=== PATIENT | female | born 1990 | race African-American/Black ===

== ENCOUNTER 2025-05-26 01:14 | Inpatient (IN) ==
--- NOTE | 2025-05-26 01:29 | Emergency Department Note ---
Impression & Plan Luis handoff ED Provider Note HPI: History obtained from case management and RN via police report. The patient is a 35-year-old female with reported bipolar disorder, presents the emergency department with apparent luis. Reportedly, police were called for a wellness check by one of the patient's friends. Patient was exhibiting bizarre and manic behavior upon arrival and therefore was brought to the ER for medical evaluation. On my assessment here in the ED the patient is manic appearing, she exhibits a disorganized thought process, she continues to talk without stopping. Patient is talking about "the Nazis" as well as "the devil" and at times is talking about various celebrities. She is not willing to answer any of my questions. Patient physically does not appear to be in any acute distress. ROS: - Per HPI Differential Diagnosis: Acute psychosis, bipolar disorder with luis, polysubstance abuse/drug-induced psychosis, amongst other potential pathologies. *Outpatient medications and allergy history reviewed. PE: General: Alert HEENT: Normocephalic, trachea midline Eyes: Extraocular eye movement is intact, no scleral erythema Pulmonary: Clear to auscultation bilaterally, no wheezing Cardio: Regular rate and rhythm GI: Abdomen is soft to palpation : No suprapubic tenderness MSK: No evidence of trauma or malformation of the extremities, no edema Skin: No evidence of rash Neuro: Alert, no focal deficits Psychiatric: Patient is tangential and disorganized with her thought process, manic appearing Interventions provided in ED: -IM Haldol, IM Ativan Medical Decision Making: Patient required sedation shortly after arrival given her agitation, disorganized thought process, and inability to comply with any instructions or plan of care. Chemical sedation did work well, lab work was obtained and did not show any evidence of any critical findings. testing is negative. Alcohol level is negative. COVID screening is negative. 302 was filed and upheld by myself. Patient is disorganized does not appear stable to take care of herself at this time due to acute psychiatric illness. Plan at this point is for the patient to be evaluated by [facility] S. for potential inpatient admission. Patient was signed out to my colleague, Dr. Murcia, pending ongoing evaluation and bed search for inpatient psychiatric care. Consultants/Discussions held with other healthcare providers: - Case management * CRITICAL CARE TIME: ( 38 ) minutes - Stabilization of patient with acute luis and agitation requiring chemical sedation to comply with plan of care, time spent at the bedside, interpretation of lab work and diagnostic studies, discussion with other healthcare providers and arrangement of 302 Diagnosis: 1. Acute luis with disorganized thought process 2. Agitation, acute Disposition: Handoff Jamar Laird DO Emergency Medicine Past Med/Surg History Problem List (Updated 05/26/25 @ 06:00 by Jamar Laird DO) Luis (Acute) Obesity Diabetes type 2 Social History Smoking Status: Unknown if ever smoked Preferred Language: Macedonian Feels Safe at Home: Yes Gender Identity: Female Allergies Allergies Allergy/AdvReac Type Severity Reaction Status Date / Time cefaclor [From [facility]] Allergy Verified 04/01/25 13:15 Home Meds Home Medications Medication Instructions Recorded Confirmed atomoxetine 100 mg capsule 100 mg PO DAILY 04/01/25 04/01/25 citalopram 40 mg tablet 40 mg PO DAILY 04/01/25 04/01/25 lumateperone 42 mg capsule 42 mg PO DAILY 04/01/25 04/01/25 (Caplyta) metformin 1,000 mg 24 hr 1,000 mg PO DAILY 04/01/25 04/01/25 tablet,extended release (gastric reten.) pantoprazole 40 mg tablet,delayed 40 mg PO DAILY 04/01/25 04/01/25 release trazodone 100 mg tablet 100 mg PO HS PRN 04/01/25 04/01/25 Previous Rx's Medication Instructions Recorded alcohol swabs 1 pad topical PRN #100 ea 04/01/25 blood sugar diagnostic (Contour #100 ea 04/01/25 Next Test Strips) blood-glucose meter (Contour Next #1 ea 04/01/25 Glucose Meter kit) lancets #100 ea 04/01/25 Results & Data (ED) Vital Signs Vital Signs - 24 hr 05/26/25 01:32 05/26/25 03:10 05/26/25 03:15 Temperature 36.8 C Temperature Source Oral Pulse Rate 127 H 112 H Pulse Rate [Finger] 100 H Pulse Rate from SpO2 Sensor Respiratory Rate 20 18 Respiratory Effort / Characteristics Non-Labored Spontaneous Non-Labored Spontaneous Respiratory Depth Normal Normal Respiratory Pattern Regular Regular Blood Pressure 154/89 H Blood Pressure [Left Arm] 156/94 H Blood Pressure Mean 110 Blood Pressure Mean [Left Arm] 114 Blood Pressure Position [Left Arm] Lying Pulse Oximetry 99 99 Oxygen Delivery Method Room Air Room Air Sepsis Recent Fever Within 48 Hours No Sepsis New/Unexplained Change in Mental Status N/A Sepsis Action Taken by Nursing No Action Required 05/26/25 03:30 05/26/25 04:00 05/26/25 04:30 Temperature Temperature Source Pulse Rate 112 H 114 H 114 H Pulse Rate [Finger] Pulse Rate from SpO2 Sensor 112 H 114 H 114 H Respiratory Rate 22 26 H 27 H Respiratory Effort / Characteristics Respiratory Depth Respiratory Pattern Blood Pressure Blood Pressure [Left Arm] Blood Pressure Mean Blood Pressure Mean [Left Arm] Blood Pressure Position [Left Arm] Pulse Oximetry 97 97 97 Oxygen Delivery Method Sepsis Recent Fever Within 48 Hours Sepsis New/Unexplained Change in Mental Status Sepsis Action Taken by Nursing 05/26/25 04:51 05/26/25 05:00 05/26/25 05:00 Temperature Temperature Source Pulse Rate 126 H 110 H Pulse Rate [Finger] 104 H Pulse Rate from SpO2 Sensor Respiratory Rate 31 H 29 H 29 H Respiratory Effort / Characteristics Respiratory Depth Respiratory Pattern Blood Pressure 142/92 H Blood Pressure [Left Arm] 142/92 H Blood Pressure Mean 108 Blood Pressure Mean [Left Arm] 108 Blood Pressure Position [Left Arm] Pulse Oximetry 97 Oxygen Delivery Method Room Air Sepsis Recent Fever Within 48 Hours Sepsis New/Unexplained Change in Mental Status Sepsis Action Taken by Nursing 05/26/25 05:30 05/26/25 06:00 05/26/25 06:27 Temperature Temperature Source Pulse Rate 108 H 100 H 118 H Pulse Rate [Finger] Pulse Rate from SpO2 Sensor Respiratory Rate 25 H 22 21 Respiratory Effort / Characteristics Respiratory Depth Respiratory Pattern Blood Pressure 119/91 Blood Pressure [Left Arm] Blood Pressure Mean 100 Blood Pressure Mean [Left Arm] Blood Pressure Position [Left Arm] Pulse Oximetry 97 Oxygen Delivery Method Room Air Sepsis Recent Fever Within 48 Hours Sepsis New/Unexplained Change in Mental Status Sepsis Action Taken by Nursing 05/26/25 06:27 Temperature Temperature Source Pulse Rate Pulse Rate [Finger] Pulse Rate from SpO2 Sensor Respiratory Rate Respiratory Effort / Characteristics Respiratory Depth Respiratory Pattern Blood Pressure 119/91 Blood Pressure [Left Arm] Blood Pressure Mean 104 Blood Pressure Mean [Left Arm] Blood Pressure Position [Left Arm] Pulse Oximetry Oxygen Delivery Method Sepsis Recent Fever Within 48 Hours Sepsis New/Unexplained Change in Mental Status Sepsis Action Taken by Nursing Laboratory Data 05/26/25 01:16 05/26/25 01:16 Lab Results 05/26/25 05/26/25 05/26/25 Range/Units 01:16 01:52 01:57 WBC 9.74 (4.8-10.8) K/ul RBC 4.30 (4.20-5.40) M/uL Hgb 12.5 (12.0-16.0) g/dL Hct 34.6 L (37.0-47.0) % MCV 80.5 (80.0-100.0) fL MCH 29.1 (25.0-34.0) pg MCHC 36.1 H (32.0-36.0) g/dL RDW Std Deviation 34.0 L (36.4-46.3) fL RDW Coeff of Darian 11.7 (11.5-14.5) % Plt Count 348 (130-400) K/uL MPV 10.1 (9.4-12.4) fL Immature Gran % (Auto) 0.3 % Neut % (Auto) 57.3 % Lymph % (Auto) 33.4 % Spencer % (Auto) 8.2 % Eos % (Auto) 0.2 % Baso % (Auto) 0.6 % Neut # (Auto) 5.58 (1.40-6.50) K/uL Lymph # (Auto) 3.25 (1.20-3.40) K/uL Spencer # (Auto) 0.80 H (0.11-0.59) K/uL Eos # (Auto) 0.02 (0.00-0.50) K/uL Baso # (Auto) 0.06 (0.00-0.20) K/uL Immature Gran # (Auto) 0.03 (0.01-0.20) K/uL Sodium 140 (136-145) mmol/L Potassium 3.5 (3.5-5.1) mmol/L Chloride 106 (98-107) mmol/L Carbon Dioxide 18 L (21-32) mmol/L Anion Gap 16 H (3-11) BUN 13 (6-23) mg/dl Creatinine 1.06 (0.6-1.2) mg/dl Est Cr Clr Drug Dosing 73.3 ml/min eGFR 69.39 BUN/Creatinine Ratio 12.3 (10-20) Glucose 119 H (70-99(Fasting)) mg/dl Calcium 10.0 (8.6-10.3) mg/dl Total Bilirubin 1.2 H (0.2-1.0) mg/dl AST 36 (13-39) U/L ALT 32 (7-52) U/L Alkaline Phosphatase 41 (34-104) U/L Total Protein 7.3 (6.0-8.3) gm/dl Albumin 4.6 (3.4-5.0) gm/dl Globulin 2.7 (2.5-4.0) gm/dl Albumin/Globulin Ratio 1.7 (0.9-2) TSH 6.188 H (0.300-4.500) uIu/ml Free T4 1.38 (0.61-1.60) ng/dl HCG, Qual Negative (Negative) Salicylates < 3.0 L (3.0-30) mg/dl Acetaminophen < 3 L (10-30) ug/ml Ethyl Alcohol mg/dL < 10.0 (<10.0) mg/dl SARS-CoV-2, RNA, NAAT (NEGATIVE) 05/26/25 Range/Units 03:11 WBC (4.8-10.8) K/ul RBC (4.20-5.40) M/uL Hgb (12.0-16.0) g/dL Hct (37.0-47.0) % MCV (80.0-100.0) fL MCH (25.0-34.0) pg MCHC (32.0-36.0) g/dL RDW Std Deviation (36.4-46.3) fL RDW Coeff of Darian (11.5-14.5) % Plt Count (130-400) K/uL MPV (9.4-12.4) fL Immature Gran % (Auto) % Neut % (Auto) % Lymph % (Auto) % Spencer % (Auto) % Eos % (Auto) % Baso % (Auto) % Neut # (Auto) (1.40-6.50) K/uL Lymph # (Auto) (1.20-3.40) K/uL Spencer # (Auto) (0.11-0.59) K/uL Eos # (Auto) (0.00-0.50) K/uL Baso # (Auto) (0.00-0.20) K/uL Immature Gran # (Auto) (0.01-0.20) K/uL Sodium (136-145) mmol/L Potassium (3.5-5.1) mmol/L Chloride (98-107) mmol/L Carbon Dioxide (21-32) mmol/L Anion Gap (3-11) BUN (6-23) mg/dl Creatinine (0.6-1.2) mg/dl Est Cr Clr Drug Dosing ml/min eGFR BUN/Creatinine Ratio (10-20) Glucose (70-99(Fasting)) mg/dl Calcium (8.6-10.3) mg/dl Total Bilirubin (0.2-1.0) mg/dl AST (13-39) U/L ALT (7-52) U/L Alkaline Phosphatase (34-104) U/L Total Protein (6.0-8.3) gm/dl Albumin (3.4-5.0) gm/dl Globulin (2.5-4.0) gm/dl Albumin/Globulin Ratio (0.9-2) TSH (0.300-4.500) uIu/ml Free T4 (0.61-1.60) ng/dl HCG, Qual (Negative) Salicylates (3.0-30) mg/dl Acetaminophen (10-30) ug/ml Ethyl Alcohol mg/dL (<10.0) mg/dl SARS-CoV-2, RNA, NAAT NEGATIVE (NEGATIVE) Administered Medications Discontinued Medications Haloperidol Lactate (Haloperidol Lactate 5 Mg/Ml 1 Ml Vial) Confirm Administered Dose 10 mg .ROUTE .STK-MED ONE Stop: 05/26/25 01:27 Last Admin: 05/26/25 01:41 Dose: Not Given Documented By: VIJAY Haloperidol Lactate (Haloperidol Lactate 5 Mg/Ml 1 Ml Vial) 5 mg IM NOW STA Stop: 05/26/25 01:27 Last Admin: 05/26/25 01:42 Dose: 5 mg Documented By: VIJAY Lorazepam (Lorazepam 1 Mg/1 Ml Syr Ed Inj Use) Confirm Administered Dose 2 mg .ROUTE .STK-MED ONE Stop: 05/26/25 01:27 Last Admin: 05/26/25 01:41 Dose: Not Given Documented By: VIJAY Lorazepam (Lorazepam 1 Mg/1 Ml Syr Ed Inj Use) 2 mg IM ONE STA Stop: 12/17/25 01:27 Last Admin: 05/26/25 01:42 Dose: 2 mg Documented By: [facility] Discharge Plan Visit Data Chief Complaint: Mental Health Evaluation Stated Complaint: MHID ED Provider: Jamar Laird Discharge Problem: Luis Patient Disposition: Still a Patient Condition: Fair Forms Stand Alone Forms: My [facility], Suicide Prevention Resources Prescriptions Prescriptions: No Action Caplyta 42 mg capsule 42 mg PO DAILY trazodone 100 mg tablet 100 mg PO HS PRN atomoxetine 100 mg capsule 100 mg PO DAILY pantoprazole 40 mg tablet,delayed release (DR/EC) 40 mg PO DAILY metformin 1,000 mg tablet,ER vivek.retention 24 hr 1,000 mg PO DAILY citalopram 40 mg tablet 40 mg PO DAILY (DME) blood-glucose meter [Contour Next Glucose Meter] Kit See Rx Instructions miscellaneous .MEDSUPPLY Qty: 1 0RF Rx Instructions: As directed, check blood sugar daily (DME) Contour Next Test Strips Strip See Rx Instructions miscellaneous .MEDSUPPLY Qty: 100 0RF Rx Instructions: As directed, check blood sugar daily (DME) lancets Misc See Rx Instructions miscellaneous .MEDSUPPLY Qty: 100 1RF Rx Instructions: As directed, check blood sugar daily alcohol swabs Pads, Medicated 1 pad topical PRN Qty: 100 1RF Referrals Referrals: Vladimir Valdez PA-C [Primary Care Provider] -
[2025-05-26] MEDS: LORazepam 1 MG/1 ML SYR ED Inj Use ONE (01:41)
[2025-05-26] MEDS: HALOPERIDOL LACTATE 5 MG/ML 1 ML VIAL ONE (01:41)
[2025-05-26] MEDS: LORazepam 1 MG/1 ML SYR ED Inj Use IM STA (01:42)
[2025-05-26] MEDS: HALOPERIDOL LACTATE 5 MG/ML 1 ML VIAL IM STA (01:42)
[2025-05-26 02:29] LABS: Hematocrit (blood only) 34.6 % (37.0-47.0); Hemoglobin 12.5 g/dL (12.0-16.0); Immature Granulocytes # (auto) 0.03 K/uL (0.01-0.20); Immature Granulocytes % (auto) 0.3 %; Mean Corpuscular Hemoglobin 29.1 pg (25.0-34.0); Mean Corpuscular Volume 80.5 fL (80.0-100.0); Platelet Count 348 K/uL (130-400); RDW Standard Deviation 34.0 fL (36.4-46.3); Red Blood Count 4.30 M/uL (4.20-5.40); White Blood Count 9.74 K/ul (4.8-10.8)
[2025-05-26 02:42] LABS: Pregnancy Test, Serum Negative (Negative)
[2025-05-26 02:46] LABS: Alanine Aminotransferase 32.0 U/L (7-52); Albumin Globulin Ratio 1.7 (0.9-2); Albumin Level 4.6 gm/dl (3.4-5.0); Alkaline Phosphatase 41.0 U/L (34-104); Anion Gap 16.0 (3-11); Bilirubin,Total 1.2 mg/dl (0.2-1.0); Blood Urea Nitrogen 13.0 mg/dl (6-23); Calcium 10.0 mg/dl (8.6-10.3); Carbon Dioxide 18.0 mmol/L (21-32); Chloride 106.0 mmol/L (98-107); Creatinine Clr Calc Pharmacy 73.3 ml/min; Globulin 2.7 gm/dl (2.5-4.0); Glucose 119.0 mg/dl (70-99(Fasting)); Potassium 3.5 mmol/L (3.5-5.1); Sodium 140.0 mmol/L (136-145); Total Protein 7.3 gm/dl (6.0-8.3)
[2025-05-26 02:59] LABS: Acetaminophen < 3 ug/ml (10-30); Salicylate < 3.0 mg/dl (3.0-30)
[2025-05-26 03:01] LABS: Thyroid Stimulating Hormone 6.188 uIu/ml (0.300-4.500)
[2025-05-26 03:36] LABS: T4 Free Thyroxine 1.38 ng/dl (0.61-1.60)
--- NOTE | 2025-05-26 07:31 | Emergency Department Note ---
ED Visit Note Received this patient in signout. In short a 35-year-old with manic and disorganized behavior requiring sedation overnight here waiting placement on a 302. Urinalysis obtained to exclude infection and UDS sent. Case management assisted. Referrals were made. She was evaluated by [facility] [address]. and accepted there for further inpatient mental health care. .
[2025-05-26 11:51] LABS: Appearance Urine Clear (Clear); Bacteria Urine Automated 1+ (None Seen); Cast Urine Automated 0-2 /lpf (0-2); Glucose Urine UA Negative (Negative); RBC Urine Automated 0-2 /hpf (0-2); WBC Urine Automated 0-5 /hpf (0-5)
[2025-05-26 12:37] LABS: Amphetamines+Metham, Urine Neg (Neg); MDMA (Ecstacy), Urine Neg (Neg); Marijuana, Urine Neg (Neg)
[2025-05-26] MEDS ORDERED: SODIUM CHLORIDE 0.65% NA SOLN 45 ML (OCEAN) PRN (13:55)
[2025-05-26] MEDS ORDERED: ACETAMINOPHEN 325 MG TAB PO PRN (13:55)
[2025-05-26] MEDS ORDERED: MAGNESIUM HYDROXIDE SUSP 30 ML UDC PO PRN (13:55)
[2025-05-26] MEDS ORDERED: LORazepam 0.5 MG TAB PO PRN (13:56)
--- NOTE | 2025-05-27 09:07 | History & Physical ---
Date of Service May 27, 2025 Impression / Recommendations Impression Rosa Spivey is a 35-year-old female with AN established history of bipolar 1 disorder, and presents with acute luis, involving disorganized and paranoid behavior prior to admission. She was initially brought in on a 302 petition by crisis, after police did a wellness check and she answered the door naked, was hyperverbal, and refused to put on clothing. 302 was upheld in the emergency room, she had as needed medication given then. She has been more cooperative since arrival to the unit, and a 201 was offered. Patient was agreeable to signing in voluntarily. She is willing to accept medication here. She feels Caplyta, which was started about 4 to 5 months ago, has been helpful. However is not on formulary, she is not willing to ask anyone to bring it in from home. She reports Latuda was also previously helpful and is open to a retrial of that. Start 20 mg today with dinner, and increase to 40 starting tomorrow. She says she is also been on Depakote and would be willing to go back on that if necessary. She is of childbearing age, and test was negative. Given the possible complications of Depakote though, we will start with just Latuda. I did decide to hold her home dose of Celexa and Strattera, given current manic presentation. Medical cause of luis is less likely, since she does have an established bipolar disorder diagnosis and symptoms are similar to past manic presentations. She has been tachycardic but blood pressure has been normal. CBC significant only for low hematocrit (but normal hemoglobin). TSH mildly elevated at 6.188; bilirubin mildly elevated at 1.2. UA was abnormal, but likely contaminated (3-5 epithelial cells). UDS was negative. since we are starting second-generation as a chronic, I did order hemoglobin A1c and lipid panel for the morning. I will also repeat TSH to see if it is normalizing. Overall, I spent a total of 75 minutes on this patient's care, including review of chart/records, direct evaluation of the patient, ordering medication, coordination with nursing, interdisciplinary team meeting, and documentation. (1) Bipolar 1 disorder with moderate luis: Plan The patient was admitted to the [facility] ([facility] mental health unit) on q15 min checks (behavioral with suicide precautions) for safety. The patient will participate in group, recreational, and milieu therapies and will be offered additional individual and family sessions as clinically appropriate. Since admission to the unit yesterday, she has been accepting medication, slept well, is eating and cooperative with staff. She was originally on a 302, and was offered a 201 today. She did sign in voluntarily. New medications initiated: Latuda 20 mg today, then 40 mg starting tomorrow Continue the following home medications: trazodone 100 mg nightly metformin 1000 mg daily spironolactone pantoprazole 40 mg daily Held with the following Home medications: Celexa 40 mg ( due to luis) Strattera 100 mg ( due to luis) Caplyta 42 mg ( due to not being on formulary, patient unable to bring home med to hospital) The following PRN medications will be started as well: Vistaril as needed anxiety or sleep Tylenol as needed headache or minor fever Maalox, Pepto, milk of mag as needed GI upset Zyprexa 5 mg p.o. p.o. every 6H as needed agitation Ativan 0.5 mg p.o. every 6H as needed agitation Inventory Assets Strengths: intelligence and education, establish outpatient providers, reported medication adherence Needs: medication adjustment, academic support, social support Suicide Risk Level Suicide Risk Level: Moderate (q15 min suicide checks) Suicide Risk Level Comments: suicide Risk Level: Moderate (q15 min suicide checks) Suicide Risk Level Comments: low-moderate due to luis which increases impulsivity but feels safe in the hospital, denying SI currently, able to contract for safety and agrees to let staff know should if plan or intent develops, or if patient feels unable to remain safe. 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 Chief Complaint " I am fine". History of Present Illness In the ED, she was noted to have disorganized thoughts, to be hyperverbal with pressured speech and talking about "the Nazis" as well as "the devil" and several various celebrities. Word salad at times in the ED, per window caser note. She had IM medications and it was reported that this was effective. 302 was filed by crisis, and upheld in the emergency room. Patient's mother was contacted, and reported concern the patient has been not taking her meds and decompensating for the past 4 5 days. Patient reportedly has 1 previous episode of similar behavior in 2010, when she was studying for her masters degree. Her mother has a [employer] mary, and noted that patient has not left her apartment in several days. She and AJ typically talk several times a day, but recently patient stopped communicating in the past, talking her mother during a manic episode seem to be a trigger and could escalate behavior. Police reported that patient's mother was the one who called them for the wellness check. She answered the door completely undressed and stepped in the hallway, would not dress despite encouragement from officers. She is was hyperverbal does not allow others to speak, saying things about "the illuminati", calling the officers "white supreme assist", and stating that [employer] Christina is building a tower. In the ED, she was noted to have disorganized thoughts, to be hyperverbal with pressured speech and talking about "the Nazis" as well as "the devil" and several various celebrities. Word salad at times in the ED, per window caser note. She had IM Haldol and it was reported that this was effective. 302 was filed by crisis, and upheld in the emergency room. Upon arrival to our unit, she had mild irritability but overall was cooperative with transitioning to the unit. She slept much of the evening shift. She then slept 4-1/2 hours overnight. She did not attend groups yesterday. This morning, she has been pleasant. She was noted to be dancing in her room while listening to music. She tolerated the social history interview with social work. She continues to report she has been taking her medications regularly, but does acknowledge she has had increased academic and social stress recently. Of note, patient does not have her glasses here, and does have significant trouble seeing without them. I met with the patient privately in her room. She said she wanted to lie down on her bed, if that reminded her of lying on the couch when talking to a psychiatrist. She reports 2 weeks ago she had "a cycle", but cannot specifically describe symptoms that occurred. She did report increased stress and said several times "I just needed a break." She says she was a little agitated, and "gaslighting myself", describes some paranoia about her classmates being disrespectful to her. She said "I wanted space and they were not giving it to me." She said she continued going to class and felt symptoms resolved. She denies pulling all minors per finals week. She does state that she tends to wake up at 2 or 4 in the morning and then stay awake. When I reflected that she was hyperverbal with rapid and pressured speech, she said "this is not [place] manic talk[place] She continues to have a paranoid edge, she said she wants no one going into her house to get her glasses or her medication to bring here. denies significant anxiety. Denies depression, SI or PDW. Denies auditory or visual hallucinations. Past Psychiatric History Previous Psych History: Reports she was previously diagnosed with major depression and dysthymia, then got on medications, (Zoloft, Wellbutrin), which triggered a manic episode. She was then hospitalized and diagnosed with bipolar 1. She says she then went off meds, and was rehospitalized. Since then, she has been med adherent and stable according to the patient. She says she had a bout of insomnia possibly hypomania in 2022, and then possibly hypomania 2 weeks ago. her mother reported that in the past, patient has had episodes triggered by academic stress. Current Psychiatric Diagnosis: Bipolar 1, MDD, possibly ADD Outpatient Services: [facility] Previous Psych Admissions: hx of hospitalization in [place] x 2014 and 2015 Do You Have Access To A Gun?: No History of Previous Suicide Attempt: No Past Medication Trials: Zoloft, Wellbutrin, Latuda (helpful in the past), Depakote (says she was on for 15+ years), Caplyta (new starting in January 2025) Past Head Trauma/Neuro History none reported Allergies Allergy/AdvReac Type Severity Reaction Status Date / Time cefaclor [From [facility]] Allergy Verified 04/01/25 13:15 Home Medications Medication Instructions Recorded Confirmed Type atomoxetine 100 mg capsule 100 mg PO DAILY 04/01/25 05/26/25 History blood sugar diagnostic (Contour #100 ea 04/01/25 05/26/25 Rx Next Test Strips) blood-glucose meter (Contour Next #1 ea 04/01/25 05/26/25 Rx Glucose Meter kit) citalopram 40 mg tablet 40 mg PO DAILY 04/01/25 05/26/25 History lancets #100 ea 04/01/25 05/26/25 Rx lumateperone 42 mg capsule 42 mg PO DAILY 04/01/25 05/26/25 History (Caplyta) metformin 1,000 mg 24 hr 1,000 mg PO DAILY 04/01/25 05/26/25 History tablet,extended release (gastric reten.) pantoprazole 40 mg tablet,delayed 40 mg PO DAILY 04/01/25 05/26/25 History release trazodone 100 mg tablet 100 mg PO HS 04/01/25 05/26/25 History Family History Family History of: Other Mood Disorders Family Mental Health History Comment: unknown. pt unable to be assessed Alcohol History Hx of Alcohol Use Over the Past 12 Months: No Smoking Use Have You Smoked or Used Tobacco Products in the Last 30 Days: No tobacco type: smokeless tobacco Smoking Status: Light tobacco smoker Smoking packs per day: 0.1 Substance History Hx of Prescription Med Misuse Over the Past 12 Months: No Hx of Over the Counter Med Misuse Over the Past 12 Months: No Hx of Inhalent Misuse Over the Past 12 Months: No Hx of Organic Substance Use Over the Past 12 Months: No Hx of Illegal Substances/Street Drug Use Over Past 12 Months: No Problems as a Result of Past Substance Use: None Identified Problems as a Result of Past Substance Use Comments: unknown. 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 patient says she started and not completed to past PhD programs. Does have a masters from [employer]. Employment Status: Student Marital Status: Single Number Of Children: 0 Beliefs That Will Affect Care: None Hx Legal Problems: No Patient History Medical History PCOS (polycystic ovarian syndrome) Diabetes type 2 Social History Smoking Status: Light tobacco smoker Preferred Language: Finnish Communication Ability: Effective Loop Tacker Required: No Beliefs That Will Affect Care: None Feels Safe at Home: Yes Gender Identity: Female Assistive Devices: None Review of Systems Review of Systems: All systems reviewed & are unremarkable except as noted in HPI & below Physical Exam Psychiatric: Orientation: alert, oriented x 3 and cooperative Apperance: appropriately dressed mildly disheveled Eye Contact: + fair eye contact Motor Behavior: steady gait and station and + psychomotor agitation frequently changing positions Speech: + pressured speech hyperverbal, rapid. Not loud. Affect: + blunted affect Mood: + anxious mood and + irritable mood Thought Process: goal directed thought process, + circumstantial thought process and + flight of ideas Thought Content: + persecution Suicidal Thoughts: denies suicidal thoughts, denies suicidal plan and denies suicidal intent Homicidal Thoughts: denies homicidal thoughts, denies homicidal plan and denies homicidal intent Hallucinations: no auditory hallucinations and no visual hallucinations Cognition: recent memory grossly intact, remote memory grossly intact and language grossly intact; + attention not intact Distractible Estimated Intelligence: consistent with education level Insight: + limited insight Judgment: + limited judgement Vital Signs (Past 24 Hours): Last Vital Signs Temp 36.5 C 05/27/25 06:20 Pulse 101 H 05/27/25 06:21 Resp 16 05/27/25 06:20 BP 117/88 05/27/25 06:21 Pulse Ox 100 05/26/25 16:02 O2 Del Method Room Air 05/26/25 16:36 Physical Examination: A physical exam was performed in the ED by Dr. Laird for the purposes of medical clearance. I accept that physical as correct and adequate for the purposes of the inpatient physical exam. Results & Data (U) Laboratory Results Laboratory Results - last 24 hr 05/26/25 11:30 Urine Color Yellow Urine Appearance Clear Urine pH 5.5 Ur Specific [place] 1.016 Urine Protein Negative Urine Glucose (UA) Negative Urine Ketones 2+ H Urine Blood 1+ H Urine Nitrite Negative Urine Bilirubin Negative Urine Urobilinogen Negative Ur Leukocyte Esterase Trace H Urine WBC (Auto) 0-5 Urine RBC (Auto) 0-2 U Hyaline Cast (Auto) 0-2 U Epithel Cells (Auto) 3-5 H Urine Bacteria (Auto) 1+ H Urine Comment Urine Opiates Screen Neg Ur Methadone, Qual Neg Urine Fentanyl Screen Neg Urine Barbiturates Neg Ur Phencyclidine (PCP) Neg U Amphetamin/Meth Scrn Neg MDMA (Ecstasy) Screen Neg U Benzodiazepines Scrn Neg Ur Cocaine Metabolite Neg U Marijuana (THC) Screen Neg Current Inpatient Medications Current Inpatient Medications: Current Inpatient Medications Acetaminophen (Acetaminophen 325 Mg Tab) 650 mg PO Q4H PRN PRN Reason: Headache or Minor Fever Stop: 06/25/25 13:54 Al Hydrox/Mg Hydrox/Simethicone (Aluminum/Magnesium Susp 30 Ml Udc) 30 ml PO Q4H PRN PRN Reason: GI Upset Stop: 06/25/25 13:54 Bismuth Subsalicylate (Bismuth Subsalicylate 262 Mg Chew) 2 tab PO Q30M PRN PRN Reason: Loose Stool/Diarrhea Stop: 06/25/25 13:54 Hydroxyzine HCl (Hydroxyzine Hcl 25 Mg Tab) 50 mg PO HSZ PRN PRN Reason: Insomnia Stop: 06/25/25 13:54 Hydroxyzine HCl (Hydroxyzine Hcl 25 Mg Tab) 25 mg PO Q4H PRN PRN Reason: Anxiety Stop: 06/25/25 13:54 Lorazepam (Lorazepam 0.5 Mg Tab) 0.5 mg PO Q6 PRN PRN Reason: Anxiety Stop: 06/25/25 13:55 Magnesium Hydroxide (Magnesium Hydroxide Susp 30 Ml Udc) 30 ml PO DAILY PRN PRN Reason: Constipation Stop: 06/25/25 13:54 Olanzapine (Olanzapine 5 Mg Tablet) 5 mg PO Q6 PRN PRN Reason: Agitation Stop: 06/25/25 13:54 Sodium Chloride (Sodium Chloride 0.65% Na Soln 45 Ml ([place])) 1 - 2 sprays NA PRN PRN PRN Reason: Nasal Dryness/Congestion Stop: 06/25/25 13:54
[2025-05-27] MEDS: BISMUTH SUBSALICYLATE 262 MG CHEW PO PRN (14:38)
[2025-05-27] MEDS: LURASIDONE HCL 20 MG TAB PO SCH (17:32)
[2025-05-27] MEDS: SPIRONOLACTONE 100 MG TAB PO SCH (20:47)
[2025-05-27] MEDS: ALUMINUM/MAGNESIUM SUSP 30 ML UDC PO PRN (20:47)
[2025-05-28 07:30] LABS: Cholesterol 178.0 mg/dl (0-200); HDL Cholesterol 55.0 mg/dl; Triglycerides 109.0 mg/dl (0-150)
[2025-05-28 07:46] LABS: Thyroid Stimulating Hormone 1.394 uIu/ml (0.300-4.500)
--- NOTE | 2025-05-28 09:02 | Psychiatric Progress Note ---
Date of Service May 28, 2025 Impression / Recommendations Impression Rosa Warren is a 35-year-old female with AN established history of bipolar 1 disorder, and presents with acute luis, involving disorganized and paranoid behavior prior to admission. She was initially brought in on a 302 petition by crisis, after police did a wellness check and she answered the door naked, was hyperverbal, and refused to put on clothing. 302 was upheld in the emergency room, she had as needed medication given then. She has been more cooperative since arrival to the unit, and a 201 was offered. Patient was agreeable to signing in voluntarily. She is willing to accept medication here. She feels Caplyta, which was started about 4 to 5 months ago, has been helpful. However is not on formulary, she is not willing to ask anyone to bring it in from home. She reports Latuda was also previously helpful and is open to a retrial of that. Start 20 mg today with dinner, and increase to 40 starting tomorrow. She says she is also been on Depakote and would be willing to go back on that if necessary. She is of childbearing age, and test was negative. Given the possible complications of Depakote though, we will start with just Latuda. I did decide to hold her home dose of Celexa and Strattera, given current manic presentation. A: More organized. No irritability or agitation. No delusional content. Still little elevated, with rapid speech and thoughts, but showing better insight. Increase Latuda to 40 mg today. of note, patient reports they were in process of determining whether she has ADHD and her outpatient treatment recently. Overall, I spent a total of 35 minutes on this patient's care, including review of chart/records, direct evaluation of the patient, ordering medication, coordination with nursing, interdisciplinary team meeting, and documentation. (1) Bipolar 1 disorder with moderate luis: Plan 05/28/25: increase Latuda to 40mg today. 05/27/25: The patient was admitted to the [facility] ([facility]) on q15 min checks (behavioral with suicide precautions) for safety. The patient will participate in group, recreational, and milieu therapies and will be offer ed additional individual and family sessions as clinically appropriate. Since admission to the unit yesterday, she has been accepting medication, slept well, is eating and cooperative with staff. She was originally on a 302, and was offered a 201 today. She did sign in voluntarily. New medications initiated: Latuda 20 mg today, then 40 mg starting tomorrow Continue the following home medications: trazodone 100 mg nightly metformin 1000 mg daily spironolactone pantoprazole 40 mg daily Held with the following Home medications: Celexa 40 mg ( due to luis) Strattera 100 mg ( due to luis) Caplyta 42 mg ( due to not being on formulary, patient unable to bring home med to hospital) The following PRN medications will be started as well: Vistaril as needed anxiety or sleep Tylenol as needed headache or minor fever Maalox, Pepto, milk of mag as needed GI upset Zyprexa 5 mg p.o. p.o. every 6H as needed agitation Ativan 0.5 mg p.o. every 6H as needed agitation Inventory Assets Strengths: intelligence and education, establish outpatient providers, reported medication adherence Needs: medication adjustment, academic support, social support Suicide Risk Level Suicide Risk Level: Moderate (q15 min suicide checks) Suicide Risk Level Comments: suicide Risk Level: Moderate (q15 min suicide checks) Suicide Risk Level Comments: low-moderate due to luis which increases impulsivity but feels safe in the hospital, denying SI currently, able to contract for safety and agrees to let staff know should if plan or intent develops, or if patient feels unable to remain safe. 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 Review of Systems Sleep Information Total Hours of Sleep: 8.5 Meal Information Percent Meal Consumed - Breakfast: 100 Percent Meal Consumed - Lunch: 100 Percent Meal Consumed - Dinner: 80 Nutrition Comment: patient ate a sandwich in the ED and has not eaten on the unit. Subjective Subjective Patient was seen & assessed and interval progress reviewed with [treatment team per report: accepting meds more organized attending groups more appropriate in interactions speech still pressured mood 9/10 and "ready" to work towards discharge slept 8.5 hours I met with the patient privately in her room. She says she is feeling "much better." Describes herself as "more grounded." She is feeling calmer now that she knows that she has extensions for her schoolwork. Her mother is in town she plans to visit with her tomorrow. Says "I feel good on the support and." Also reports she is sleeping well and "the rest has been so needed." Reports she was restless her first night here, but it was much better yesterday and today. No adverse effects to Latuda so far. Attending groups, but trying to be mindful that she does not over share, or cross boundaries by trying to help other people with her counseling knowledge. Had appropriate insight about "not wanting to rock anyone else's journey." She says her goal is to be home before [place] if possible. Physical Exam Psychiatric Orientation: alert, oriented x 3 and cooperative Apperance: appropriately dressed Eye Contact: good eye contact Motor Behavior: steady gait and station and + psychomotor agitation Speech: + pressured speech Affect: euthymic affect A little elevated Mood: no anxious mood, no irritable mood and no dysphoric mood positive mood Thought Process: goal directed thought process Thought Content: reality based without delusions future oriented. Suicidal Thoughts: denies suicidal thoughts, denies suicidal plan and denies suicidal intent Homicidal Thoughts: denies homicidal thoughts, denies homicidal plan and denies homicidal intent Hallucinations: no auditory hallucinations and no visual hallucinations Cognition: recent memory grossly intact, remote memory grossly intact and language grossly intact Estimated Intelligence: consistent with education level Insight: + fair insight Judgment: + fair judgement Vital Signs (Past 24 Hours) Last Vital Signs Temp 36.5 C 05/28/25 06:25 Pulse 111 H 05/28/25 06:26 Resp 16 05/28/25 06:25 BP 126/84 05/28/25 06:26 Pulse Ox 100 05/26/25 16:02 O2 Del Method Room Air 05/26/25 16:36 A physical exam was performed in the ED by Dr. Laird for the purposes of medical clearance. I accept that physical as correct and adequate for the purposes of the inpatient physical exam. Results & Data ([facility]) Laboratory Results Laboratory Results - last 24 hr 05/28/25 05/28/25 06:59 08:22 POC Glucose 147 H Estimat Average Glucose Pending Hemoglobin A1c Pending Triglycerides 109 Cholesterol 178 LDL Cholesterol, Calc 101 VLDL Cholesterol, Calc 22 HDL Cholesterol 55 Cholesterol/HDL Ratio 3.2 TSH 1.394 Current Inpatient Medications Current Inpatient Medications: Current Inpatient Medications Acetaminophen (Acetaminophen 325 Mg Tab) 650 mg PO Q4H PRN PRN Reason: Headache or Minor Fever Stop: 06/25/25 13:54 Al Hydrox/Mg Hydrox/Simethicone (Aluminum/Magnesium Susp 30 Ml Udc) 30 ml PO Q4H PRN PRN Reason: GI Upset Stop: 06/25/25 13:54 Last Admin: 05/27/25 20:47 Dose: 30 ml Bismuth Subsalicylate (Bismuth Subsalicylate 262 Mg Chew) 2 tab PO Q30M PRN PRN Reason: Loose Stool/Diarrhea Stop: 06/25/25 13:54 Last Admin: 05/27/25 14:38 Dose: 2 tab Hydroxyzine HCl (Hydroxyzine Hcl 25 Mg Tab) 50 mg PO HSZ PRN PRN Reason: Insomnia Stop: 06/25/25 13:54 Hydroxyzine HCl (Hydroxyzine Hcl 25 Mg Tab) 25 mg PO Q4H PRN PRN Reason: Anxiety Stop: 06/25/25 13:54 Lorazepam (Lorazepam 0.5 Mg Tab) 0.5 mg PO Q6 PRN PRN Reason: Anxiety Stop: 06/25/25 13:55 Lurasidone HCl (Lurasidone Hcl 20 Mg Tab) 20 mg PO DAILY@1700 [facility] Stop: 06/26/25 16:59 Last Admin: 05/27/25 17:32 Dose: 20 mg Magnesium Hydroxide (Magnesium Hydroxide Susp 30 Ml Udc) 30 ml PO DAILY PRN PRN Reason: Constipation Stop: 06/25/25 13:54 Metformin HCl (Metformin Hcl Er 500 Mg Tabcr) 1,000 mg PO DAILY [facility] Stop: 06/26/25 10:59 Last Admin: 05/28/25 08:56 Dose: 1,000 mg Olanzapine (Olanzapine 5 Mg Tablet) 5 mg PO Q6 PRN PRN Reason: Agitation Stop: 06/25/25 13:54 Pantoprazole Sodium (Pantoprazole 40 Mg Tab) 40 mg PO QAM [facility]ERT[facility] Stop: 06/26/25 10:59 Last Admin: 05/28/25 08:56 Dose: 40 mg Sodium Chloride (Sodium Chloride 0.65% Na Soln 45 Ml ([place])) 1 - 2 sprays NA PRN PRN PRN Reason: Nasal Dryness/Congestion Stop: 06/25/25 13:54 Spironolactone (Spironolactone 100 Mg Tab) 100 mg PO HS MARIO ALBERTO Stop: 06/26/25 21:59 Last Admin: 05/27/25 20:47 Dose: 100 mg Trazodone HCl (Trazodone Hcl 100 Mg Tab) 100 mg PO HS [facility]IO ALBERTO Stop: 06/26/25 21:59 Last Admin: 05/27/25 20:47 Dose: 100 mg Trazodone HCl (Trazodone Hcl 50 Mg Tab) 50 mg PO HS PRN PRN Reason: Insomnia Stop: 06/26/25 10:36 Mental Health & Subst Abuse Tx Psychiatrist Name of Psychiatrist: Merlyn Estrada at [facility] Date Of Appointment With Psychiatric Provider: 07/05/25 Time of Appointment with Psychiatrist: 2PM Psychiatric Appointment Comment: Virtual Therapist Name of Therapist: Tiffany Amin at [facility] Date of Therapist Appointment: 06/18/25 Time of Therapist Appointment: 2PM Therapy Appointment Comment: Virtual Post Discharge Appointments Primary Care Physician Name Of Family Doctor/PCP: Sujatha Contact Information Discharge Discharge Address: [address] [place] [address] [place] [address]
[2025-05-28] MEDS: LURASIDONE HCL 20 MG TAB PO SCH (18:05)
--- NOTE | 2025-05-29 15:51 | Psychiatric Progress Note ---
Date of Service May 29, 2025 Impression / Recommendations Impression Rosa Warren is a 35-year-old female with AN established history of bipolar 1 disorder, and presents with acute luis, involving disorganized and paranoid behavior prior to admission. She was initially brought in on a 302 petition by crisis, after police did a wellness check and she answered the door naked, was hyperverbal, and refused to put on clothing. 302 was upheld in the emergency room, she had as needed medication given then. She has been more cooperative since arrival to the unit, and a 201 was offered. Patient was agreeable to signing in voluntarily. She is willing to accept medication here. A: Concern for bipolar 1 luis and a current active episode. Presenting pressured speech, elevated mood, decreased need for sleep, mild paranoia. Medication history reviewed and given past tolerance and efficacy with Depakote will restart medication. Start lorazepam at bedtime for sleep. Medication side effects and adverse effects discussed with patient including risks with Depakote; patient agreeable. Overall, I spent a total of 40 minutes on this patient's care, including review of chart/records, direct evaluation of the patient, ordering medication, coordination with nursing, interdisciplinary team meeting, and documentation. (1) Bipolar 1 disorder with moderate luis: Plan 05/29/2025: Start Depakote 1000 mg bedtime Start lorazepam 2 mg at bedtime 05/28/25: increase Latuda to 40mg today. 05/27/25: The patient was admitted to the [facility] ([facility] unit) on q15 min checks (behavioral with suicide precautions) for safety. The patient will participate in group, recreational, and milieu therapies and will be offered additional individual and family sessions as clinically appropriate. Since admission to the unit yesterday, she has been accepting medication, slept well, is eating and cooperative with staff. She was originally on a 302, and was offered a 201 today. She did sign in voluntarily. New medications initiated: Latuda 20 mg today, then 40 mg starting tomorrow Continue the following home medications: trazodone 100 mg nightly metformin 1000 mg daily spironolactone pantoprazole 40 mg daily Held with the following Home medications: Celexa 40 mg ( due to luis) Strattera 100 mg ( due to luis) Caplyta 42 mg ( due to not being on formulary, patient unable to bring home med to hospital) The following PRN medications will be started as well: Vistaril as needed anxiety or sleep Tylenol as needed headache or minor fever Maalox, Pepto, milk of mag as needed GI upset Zyprexa 5 mg p.o. p.o. every 6H as needed agitation Ativan 0.5 mg p.o. every 6H as needed agitation Inventory Assets Strengths: intelligence and education, establish outpatient providers, reported medication adherence Needs: medication adjustment, academic support, social support Suicide Risk Level Suicide Risk Level: Moderate (q15 min suicide checks) Suicide Risk Level Comments: suicide Risk Level: Moderate (q15 min suicide checks) Suicide Risk Level Comments: low-moderate due to luis which increases impulsivity but feels safe in the hospital, denying SI currently, able to contract for safety and agrees to let staff know should if plan or intent develops, or if patient feels unable to remain safe. 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 She was initially brought in on a 302 petition by crisis, after police did a wellness check and she answered the door naked, was hyperverbal, and refused to put on clothing. Later cooperative with improved behaviors and signed in as a 201 voluntary patient. Chief Complaint Luis Review of Systems Sleep Information Total Hours of Sleep: 4.75 Meal Information Percent Meal Consumed - Breakfast: 100 Percent Meal Consumed - Lunch: 90 Percent Meal Consumed - Dinner: 75 Nutrition Comment: patient ate a sandwich in the ED and has not eaten on the unit. 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 Recounts a meeting where she walked out in distress. Says that her symptoms got worse prior to [place] however she was able to rest and they became worse after dealing with pending research work when she returned. 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 Reports recent deaths that have occurred in the family. Reports in past crisis she was known to have rapid speech, making extra connections that did not exist, and struggling with sleep. Reports stopping Depakote in January and transitioning to Caplyta because meds were counteracting each other. Reports depressive episode that occurred in January 2025 when she moved to [facility] and was abusing alcohol to cope with her low mood. Throughout the interview patient is hyperverbal with a fast rate of speech and presents a bright and jovial affect. Unable to recall specific details of her behavior initial presentation. Reports being diagnosed dysthymia at 21 years of age and had a manic episode at 23 then diagnosed bipolar 1. Physical Exam Mental Examination Appearance: Well Groomed Eye Contact: Fleeting Contact Motor Behavior: Restless Speech: Pressured Mood: Euphoric Affect: Congruent Thought Process: Racing and Tangential Hallucinations: None Insight: Fair (to limited) Judgement: Fair (to limited) Vital Signs (Past 24 Hours) Last Vital Signs Temp 36.1 C L 05/29/25 03:22 Pulse 107 H 05/29/25 03:22 Resp 18 05/29/25 03:22 BP 119/84 05/29/25 03:22 Pulse Ox 96 05/29/25 03:22 O2 Del Method Room Air 05/29/25 03:22 A physical exam was performed in the ED by Dr. Laird for the purposes of medical clearance. I accept that physical as correct and adequate for the purposes of the inpatient physical exam. Results & Data ([facility]) Laboratory Results Laboratory Results - last 24 hr 05/28/25 05/29/25 06:59 07:10 POC Glucose 106 H Hgb A1c Pathologist Com Pending Current Inpatient Medications Current Inpatient Medications: Current Inpatient Medications Acetaminophen (Acetaminophen 325 Mg Tab) 650 mg PO Q4H PRN PRN Reason: Headache or Minor Fever Stop: 06/25/25 13:54 Al Hydrox/Mg Hydrox/Simethicone (Aluminum/Magnesium Susp 30 Ml Udc) 30 ml PO Q4H PRN PRN Reason: GI Upset Stop: 06/25/25 13:54 Last Admin: 05/27/25 20:47 Dose: 30 ml Bismuth Subsalicylate (Bismuth Subsalicylate 262 Mg Chew) 2 tab PO Q30M PRN PRN Reason: Loose Stool/Diarrhea Stop: 06/25/25 13:54 Last Admin: 05/27/25 14:38 Dose: 2 tab Divalproex Sodium (Divalproex Delay Release 500 Mg Tab) 1,000 mg PO HS MARIO ALBERTO Stop: 06/28/25 21:59 Hydroxyzine HCl (Hydroxyzine Hcl 25 Mg Tab) 50 mg PO HSZ PRN PRN Reason: Insomnia Stop: 06/25/25 13:54 Last Admin: 05/29/25 02:36 Dose: 50 mg Hydroxyzine HCl (Hydroxyzine Hcl 25 Mg Tab) 25 mg PO Q4H PRN; Protocol PRN Reason: Anxiety Stop: 06/25/25 13:54 Lorazepam (Lorazepam 1 Mg Tab) 2 mg PO HS [facility]IO ALBERTO Stop: 06/28/25 21:59 Lorazepam (Lorazepam 1 Mg Tab) 1 mg PO Q6 PRN; Protocol PRN Reason: Anxiety Stop: 06/25/25 13:55 Lurasidone HCl (Lurasidone Hcl 20 Mg Tab) 40 mg PO DAILY@1700 [facility] Stop: 06/27/25 16:59 Last Admin: 05/28/25 18:05 Dose: 40 mg Magnesium Hydroxide (Magnesium Hydroxide Susp 30 Ml Udc) 30 ml PO DAILY PRN PRN Reason: Constipation Stop: 06/25/25 13:54 Metformin HCl (Metformin Hcl Er 500 Mg Tabcr) 1,000 mg PO DAILY [facility]IO ALBERTO Stop: 06/26/25 10:59 Last Admin: 05/29/25 08:44 Dose: 1,000 mg Olanzapine (Olanzapine 5 Mg Tablet) 5 mg PO Q6 PRN PRN Reason: Agitation Stop: 06/25/25 13:54 Pantoprazole Sodium (Pantoprazole 40 Mg Tab) 40 mg PO QAM [facility]IO ALBERTO Stop: 06/26/25 10:59 Last Admin: 05/29/25 08:45 Dose: 40 mg Sodium Chloride (Sodium Chloride 0.65% Na Soln 45 Ml ([place])) 1 - 2 sprays NA PRN PRN PRN Reason: Nasal Dryness/Congestion Stop: 06/25/25 13:54 Spironolactone (Spironolactone 100 Mg Tab) 100 mg PO HS [facility]IO ALBERTO Stop: 06/26/25 21:59 Last Admin: 05/28/25 20:56 Dose: 100 mg Trazodone HCl (Trazodone Hcl 100 Mg Tab) 100 mg PO HS [facility]IO ALBERTO Stop: 06/26/25 21:59 Last Admin: 05/28/25 20:57 Dose: 100 mg Trazodone HCl (Trazodone Hcl 50 Mg Tab) 50 mg PO HS PRN PRN Reason: Insomnia Stop: 06/26/25 10:36 Mental Health & Subst Abuse Tx Psychiatrist Name of Psychiatrist: Merlyn Estrada at [facility] Date Of Appointment With Psychiatric Provider: 07/05/25 Time of Appointment with Psychiatrist: 2PM Psychiatric Appointment Comment: Virtual Therapist Name of Therapist: Tiffany Amin at [facility] Date of Therapist Appointment: 06/18/25 Time of Therapist Appointment: 2PM Therapy Appointment Comment: Virtual Post Discharge Appointments Primary Care Physician Name Of Family Doctor/PCP: ABIMAEL Other #1: Name of Aftercare Appointment: Student care and advocacy (post hospitalization zoom meeting - [facility]) Phone Number of Aftercare Appointment: [phone] Date of Aftercare Appointment: 06/01/25 Time of Aftercare Appointment: 10AM Aftercare Appointment Comment: Link will be sent to your [facility] email Contact Information Discharge Discharge Address: [place] [address]
[2025-05-29] MEDS: DIVALPROEX DELAY RELEASE 500 MG TAB PO SCH (20:52)
[2025-05-29] MEDS: LORazepam 1 MG TAB PO SCH (20:53)
[2025-05-29] MEDS: SPIRONOLACTONE 100 MG TAB PO SCH (20:53)
[2025-05-29] MEDS ORDERED: DIVALPROEX DELAY RELEASE 500 MG TAB PO SCH (22:00)
[2025-05-29] MEDS ORDERED: LORazepam 1 MG TAB PO SCH (22:00)
--- NOTE | 2025-05-30 14:07 | Psychiatric Progress Note ---
Date of Service May 30, 2025 Impression / Recommendations Impression Rosa Warren is a 35-year-old female with AN established history of bipolar 1 disorder, and presents with acute luis, involving disorganized and paranoid behavior prior to admission. She was initially brought in on a 302 petition by crisis, after police did a wellness check and she answered the door naked, was hyperverbal, and refused to put on clothing. 302 was upheld in the emergency room, she had as needed medication given then. She has been more cooperative since arrival to the unit, and a 201 was offered. Patient was agreeable to signing in voluntarily. She is willing to accept medication here. A: Patient presents improved sleep overnight and presenting less pressured speech today. However she remains hyperverbal, is presenting multiple plans, demonstrating a highly euphoric mood, has been restless, and demonstrating a decreased need for sleep. Tolerating Depakote well and will further titrate medication. Working to establish a safe discharge plan as patient has limited supports in the local community. Overall, I spent a total of 40 minutes on this patient's care, including review of chart/records, direct evaluation of the patient, ordering medication, coordination with nursing, interdisciplinary team meeting, and documentation. (1) Bipolar 1 disorder with moderate luis: Plan 05/30/2025: Increase Depakote to 1500 mg at bedtime 05/29/2025: Start Depakote 1000 mg bedtime Start lorazepam 2 mg at bedtime 05/28/25: increase Latuda to 40mg today. 05/27/25: The patient was admitted to the [facility] ([facility]) on q15 min checks (behavioral with suicide precautions) for safety. The patient will participate in group, recreational, and milieu therapies and will be offered additional individual and family sessions as clinically appropriate. Since admission to the unit yesterday, she has been accepting medication, slept well, is eating and cooperative with staff. She was originally on a 302, and was offered a 201 today. She did sign in voluntarily. New medications initiated: Latuda 20 mg today, then 40 mg starting tomorrow Continue the following home medications: trazodone 100 mg nightly metformin 1000 mg daily spironolactone pantoprazole 40 mg daily Held with the following Home medications: Celexa 40 mg ( due to luis) Strattera 100 mg ( due to luis) Caplyta 42 mg ( due to not being on formulary, patient unable to bring home med to hospital) The following PRN medications will be started as well: Vistaril as needed anxiety or sleep Tylenol as needed headache or minor fever Maalox, Pepto, milk of mag as needed GI upset Zyprexa 5 mg p.o. p.o. every 6H as needed agitation Ativan 0.5 mg p.o. every 6H as needed agitation Inventory Assets Strengths: intelligence and education, establish outpatient providers, reported medication adherence Needs: medication adjustment, academic support, social support Suicide Risk Level Suicide Risk Level: Moderate (q15 min suicide checks) Suicide Risk Level Comments: suicide Risk Level: Moderate (q15 min suicide checks) Suicide Risk Level Comments: low-moderate due to luis which increases impulsivity but feels safe in the hospital, denying SI currently, able to contract for safety and agrees to let staff know should if plan or intent develops, or if patient feels unable to remain safe. 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 She was initially brought in on a 302 petition by crisis, after police did a wellness check and she answered the door naked, was hyperverbal, and refused to put on clothing. Later cooperative with improved behaviors and signed in as a 201 voluntary patient. Chief Complaint Luis Review of Systems Sleep Information Total Hours of Sleep: 7.25 Meal Information Percent Meal Consumed - Breakfast: 100 Percent Meal Consumed - Lunch: 100 Percent Meal Consumed - Dinner: 100 Nutrition Comment: patient ate a sandwich in the ED and has not eaten on the unit. Subjective Subjective Patient was seen & assessed and interval progress reviewed with treatment team nursing and social work Patient slept 7.25 hours. She endorses a good mood and appears with a euphoric affect. Reports sleeping well. She discusses her zodiac signs and list multiple celebrities and different signs and how that impacted their abilities. She reports multiple plans including getting into an apartment, cleaning her home, reading books, watching movies that allow her to reflect emotionally, playing edgar guitar, drawing. Appears restless at times and has difficulty sitting still. Reports mother went back to [place] and that she will be home alone after discharge. Physical Exam Mental Examination Appearance: Well Groomed Eye Contact: Fleeting Contact Motor Behavior: Restless Speech: Pressured Mood: Euphoric Affect: Congruent Thought Process: Circumstantial and Racing Hallucinations: None Insight: Fair (to limited) Judgement: Fair (to limited) Vital Signs (Past 24 Hours) Last Vital Signs Temp 36.4 C 05/30/25 06:52 Pulse 89 05/30/25 06:52 Resp 20 05/30/25 06:52 BP 123/83 05/30/25 06:52 Pulse Ox 93 05/30/25 06:52 O2 Del Method Room Air 05/30/25 06:52 A physical exam was performed in the ED by Dr. Laird for the purposes of medical clearance. I accept that physical as correct and adequate for the purposes of the inpatient physical exam. Results & Data ([facility]) Laboratory Results Laboratory Results - last 24 hr 05/30/25 06:55 POC Glucose 89 Current Inpatient Medications Current Inpatient Medications: Current Inpatient Medications Acetaminophen (Acetaminophen 325 Mg Tab) 650 mg PO Q4H PRN PRN Reason: Headache or Minor Fever Stop: 06/25/25 13:54 Al Hydrox/Mg Hydrox/Simethicone (Aluminum/Magnesium Susp 30 Ml Udc) 30 ml PO Q4H PRN PRN Reason: GI Upset Stop: 06/25/25 13:54 Last Admin: 05/27/25 20:47 Dose: 30 ml Bismuth Subsalicylate (Bismuth Subsalicylate 262 Mg Chew) 2 tab PO Q30M PRN PRN Reason: Loose Stool/Diarrhea Stop: 06/25/25 13:54 Last Admin: 05/27/25 14:38 Dose: 2 tab Divalproex Sodium (Divalproex Delay Release 500 Mg Tab) 1,500 mg PO 2100 MARIO ALBERTO Stop: 06/29/25 20:59 Hydroxyzine HCl (Hydroxyzine Hcl 25 Mg Tab) 50 mg PO HSZ PRN PRN Reason: Insomnia Stop: 06/25/25 13:54 Last Admin: 05/29/25 02:36 Dose: 50 mg Hydroxyzine HCl (Hydroxyzine Hcl 25 Mg Tab) 25 mg PO Q4H PRN; Protocol PRN Reason: Anxiety Stop: 06/25/25 13:54 Lorazepam (Lorazepam 1 Mg Tab) 1 mg PO Q6 PRN; Protocol PRN Reason: Anxiety Stop: 06/25/25 13:55 Lorazepam (Lorazepam 1 Mg Tab) 2 mg PO 2100 MARIO ALBERTO Stop: 06/28/25 20:59 Last Admin: 05/29/25 20:53 Dose: 2 mg Lurasidone HCl (Lurasidone Hcl 20 Mg Tab) 40 mg PO DAILY@1700 MARIO ALBERTO Stop: 06/27/25 16:59 Last Admin: 05/29/25 17:34 Dose: 40 mg Magnesium Hydroxide (Magnesium Hydroxide Susp 30 Ml Udc) 30 ml PO DAILY PRN PRN Reason: Constipation Stop: 06/25/25 13:54 Metformin HCl (Metformin Hcl Er 500 Mg Tabcr) 1,000 mg PO DAILY MARIO ALBERTO Stop: 06/26/25 10:59 Last Admin: 05/30/25 08:36 Dose: 1,000 mg Olanzapine (Olanzapine 5 Mg Tablet) 5 mg PO Q6 PRN PRN Reason: Agitation Stop: 06/25/25 13:54 Pantoprazole Sodium (Pantoprazole 40 Mg Tab) 40 mg PO QAM [facility] Stop: 06/26/25 10:59 Last Admin: 05/30/25 08:36 Dose: 40 mg Sodium Chloride (Sodium Chloride 0.65% Na Soln 45 Ml ([place])) 1 - 2 sprays NA PRN PRN PRN Reason: Nasal Dryness/Congestion Stop: 06/25/25 13:54 Spironolactone (Spironolactone 100 Mg Tab) 100 mg PO 2100 MARIO ALBERTO Stop: 06/28/25 20:59 Last Admin: 05/29/25 20:53 Dose: 100 mg Trazodone HCl (Trazodone Hcl 50 Mg Tab) 50 mg PO HS PRN PRN Reason: Insomnia Stop: 06/26/25 10:36 Trazodone HCl (Trazodone Hcl 100 Mg Tab) 100 mg PO 2100 MARIO ALBERTO Stop: 06/28/25 20:59 Last Admin: 12/20/25 20:54 Dose: 100 mg Mental Health & Subst Abuse Tx Psychiatrist Name of Psychiatrist: Merlyn Estrada at [facility] Date Of Appointment With Psychiatric Provider: 07/05/25 Time of Appointment with Psychiatrist: 2PM Psychiatric Appointment Comment: Virtual Therapist Name of Therapist: Tiffany Brennan at [facility] Date of Therapist Appointment: 06/18/25 Time of Therapist Appointment: 2PM Therapy Appointment Comment: Virtual Post Discharge Appointments Primary Care Physician Name Of Family Doctor/PCP: ABIMAEL Other #1: Name of Aftercare Appointment: Student care and advocacy (post hospitalization zoom meeting - [facility]) Phone Number of Aftercare Appointment: [phone] Date of Aftercare Appointment: 06/01/25 Time of Aftercare Appointment: 10AM Aftercare Appointment Comment: Link will be sent to your [facility] email Contact Information Discharge Discharge Address: [address] [facility] [place] [address]
[2025-05-30] MEDS: DIVALPROEX DELAY RELEASE 500 MG TAB PO SCH (21:14)
--- NOTE | 2025-05-31 13:55 | Psychiatric Progress Note ---
Date of Service May 31, 2025 Impression / Recommendations Impression Rosa Warren is a 35-year-old female with AN established history of bipolar 1 disorder, and presents with acute luis, involving disorganized and paranoid behavior prior to admission. She was initially brought in on a 302 petition by crisis, after police did a wellness check and she answered the door naked, was hyperverbal, and refused to put on clothing. 302 was upheld in the emergency room, she had as needed medication given then. She has been more cooperative since arrival to the unit, and a 201 was offered. Patient was agreeable to signing in voluntarily. She is willing to accept medication here. A: Patient is presenting less pressured speech and a more rational discharge plan. Sleeping better with scheduled lorazepam and will plan to taper off in coming days. Concern patient has been using serotonergic drugs [id number] and this may have provoked her luis. We discussed ADHD behavioral strategies and potentially helpful medications. Reported past stability on Depakote at 1500 mg with minimal side effects. Overall, I spent a total of 40 minutes on this patient's care, including review of chart/records, direct evaluation of the patient, ordering medication, coordination with nursing, interdisciplinary team meeting, and documentation. (1) Bipolar 1 disorder with moderate luis: Plan 05/31/2025: Continue medications and treatment plan 05/30/2025: Increase Depakote to 1500 mg at bedtime 05/29/2025: Start Depakote 1000 mg bedtime Start lorazepam 2 mg at bedtime 05/28/25: increase Latuda to 40mg today. 05/27/25: The patient was admitted to the [facility] ([facility]) on q15 min checks (behavioral with suicide precautions) for safety. The patient will participate in group, recreational, and milieu therapies and will be offered additional individual and family sessions as clinically appropriate. Since admission to the unit yesterday, she has been accepting medication, slept well, is eating and cooperative with staff. She was originally on a 302, and was offered a 201 today. She did sign in voluntarily. New medications initiated: Latuda 20 mg today, then 40 mg starting tomorrow Continue the following home medications: trazodone 100 mg nightly metformin 1000 mg daily spironolactone pantoprazole 40 mg daily Held with the following Home medications: Celexa 40 mg ( due to luis) Strattera 100 mg ( due to luis) Caplyta 42 mg ( due to not being on formulary, patient unable to bring home med to hospital) The following PRN medications will be started as well: Vistaril as needed anxiety or sleep Tylenol as needed headache or minor fever Maalox, Pepto, milk of mag as needed GI upset Zyprexa 5 mg p.o. p.o. every 6H as needed agitation Ativan 0.5 mg p.o. every 6H as needed agitation Inventory Assets Strengths: intelligence and education, establish outpatient providers, reported medication adherence Needs: medication adjustment, academic support, social support Suicide Risk Level Suicide Risk Level: Moderate (q15 min suicide checks) Suicide Risk Level Comments: suicide Risk Level: Moderate (q15 min suicide checks) Suicide Risk Level Comments: low-moderate due to luis which increases impulsivity but feels safe in the hospital, denying SI currently, able to contract for safety and agrees to let staff know should if plan or intent develops, or if patient feels unable to remain safe. 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 She was initially brought in on a 302 petition by crisis, after police did a wellness check and she answered the door naked, was hyperverbal, and refused to put on clothing. Later cooperative with improved behaviors and signed in as a 201 voluntary patient. Chief Complaint Luis Review of Systems Sleep Information Total Hours of Sleep: 6 Meal Information Percent Meal Consumed - Breakfast: 100 Percent Meal Consumed - Lunch: 100 Percent Meal Consumed - Dinner: 100 Nutrition Comment: patient ate a sandwich in the ED and has not eaten on the unit. Subjective Subjective Patient was seen & assessed and interval progress reviewed with treatment team nursing and social work Overnight patient slept well. Heart rate this morning was 132 and when rechecked 106. On interview she reports doing well and presents a euphoric affect and mood. She reports previously taking Ashwaganda and Wiley Ford's wort in recent months off label. Reports sleeping well with no disrupted sleep. She presents discharge plan of cleaning up her apartment and watching a movie. Reports past tolerance on Depakote and did not have an elevated liver enzyme however when she took the 2000 mg dose she felt highly sedated. She asked about cannabis use and bipolar disorder and the potential for the use of stimulants for her ADHD symptoms. Physical Exam Mental Examination Appearance: Well Groomed Eye Contact: Fleeting Contact Motor Behavior: Restless Speech: Pressured Mood: Euphoric Affect: Congruent Thought Process: Circumstantial and Racing Hallucinations: None Insight: Fair (to limited) Judgement: Fair (to limited) Vital Signs (Past 24 Hours) Last Vital Signs Temp 36.3 C L 05/31/25 06:56 Pulse 132 H 05/31/25 06:57 Resp 22 05/31/25 06:56 BP 132/55 L 05/31/25 06:57 Pulse Ox 100 05/31/25 06:56 O2 Del Method Room Air 05/31/25 06:56 A physical exam was performed in the ED by Dr. Laird for the purposes of medical clearance. I accept that physical as correct and adequate for the purposes of the inpatient physical exam. Results & Data ([facility]) Laboratory Results Laboratory Results - last 24 hr 05/31/25 06:26 POC Glucose 97 Current Inpatient Medications Current Inpatient Medications: Current Inpatient Medications Acetaminophen (Acetaminophen 325 Mg Tab) 650 mg PO Q4H PRN PRN Reason: Headache or Minor Fever Stop: 06/25/25 13:54 Al Hydrox/Mg Hydrox/Simethicone (Aluminum/Magnesium Susp 30 Ml Udc) 30 ml PO Q4H PRN PRN Reason: GI Upset Stop: 06/25/25 13:54 Last Admin: 05/30/25 23:20 Dose: 30 ml Bismuth Subsalicylate (Bismuth Subsalicylate 262 Mg Chew) 2 tab PO Q30M PRN PRN Reason: Loose Stool/Diarrhea Stop: 06/25/25 13:54 Last Admin: 05/27/25 14:38 Dose: 2 tab Divalproex Sodium (Divalproex Delay Release 500 Mg Tab) 1,500 mg PO 2100 MARIO ALBERTO Stop: 06/29/25 20:59 Last Admin: 05/30/25 21:14 Dose: 1,500 mg Hydroxyzine HCl (Hydroxyzine Hcl 25 Mg Tab) 50 mg PO HSZ PRN PRN Reason: Insomnia Stop: 06/25/25 13:54 Last Admin: 05/29/25 02:36 Dose: 50 mg Hydroxyzine HCl (Hydroxyzine Hcl 25 Mg Tab) 25 mg PO Q4H PRN; Protocol PRN Reason: Anxiety Stop: 06/25/25 13:54 Lorazepam (Lorazepam 1 Mg Tab) 1 mg PO Q6 PRN; Protocol PRN Reason: Anxiety Stop: 06/25/25 13:55 Lorazepam (Lorazepam 1 Mg Tab) 2 mg PO 2100 MARIO ALBERTO Stop: 06/28/25 20:59 Last Admin: 05/30/25 21:14 Dose: 2 mg Lurasidone HCl (Lurasidone Hcl 20 Mg Tab) 40 mg PO DAILY@1700 MARIO ALBERTO Stop: 06/27/25 16:59 Last Admin: 05/30/25 17:17 Dose: 40 mg Magnesium Hydroxide (Magnesium Hydroxide Susp 30 Ml Udc) 30 ml PO DAILY PRN PRN Reason: Constipation Stop: 06/25/25 13:54 Metformin HCl (Metformin Hcl Er 500 Mg Tabcr) 1,000 mg PO DAILY MARIO ALBERTO Stop: 06/26/25 10:59 Last Admin: 05/31/25 08:43 Dose: 1,000 mg Olanzapine (Olanzapine 5 Mg Tablet) 5 mg PO Q6 PRN PRN Reason: Agitation Stop: 06/25/25 13:54 Pantoprazole Sodium (Pantoprazole 40 Mg Tab) 40 mg PO QAM MARIO ALBERTO Stop: 06/26/25 10:59 Last Admin: 05/31/25 08:43 Dose: 40 mg Sodium Chloride (Sodium Chloride 0.65% Na Soln 45 Ml ([place])) 1 - 2 sprays NA PRN PRN PRN Reason: Nasal Dryness/Congestion Stop: 06/25/25 13:54 Spironolactone (Spironolactone 100 Mg Tab) 100 mg PO 2100 MARIO ALBERTO Stop: 06/28/25 20:59 Last Admin: 05/30/25 21:15 Dose: 100 mg Trazodone HCl (Trazodone Hcl 50 Mg Tab) 50 mg PO HS PRN PRN Reason: Insomnia Stop: 06/26/25 10:36 Trazodone HCl (Trazodone Hcl 100 Mg Tab) 100 mg PO 2100 MARIO ALBERTO Stop: 06/28/25 20:59 Last Admin: 05/30/25 21:15 Dose: 100 mg Mental Health & Subst Abuse Tx Psychiatrist Name of Psychiatrist: [facility] Date Of Appointment With Psychiatric Provider: 07/05/25 Time of Appointment with Psychiatrist: 2PM Psychiatric Appointment Comment: Virtual Therapist Name of Therapist: Tiffany Amin at [facility] Date of Therapist Appointment: 06/18/25 Time of Therapist Appointment: 2PM Therapy Appointment Comment: Virtual Post Discharge Appointments Primary Care Physician Name Of Family Doctor/PCP: ABIMAEL Other #1: Name of Aftercare Appointment: Student care and advocacy (post hospitalization zoom meeting - [facility]) Phone Number of Aftercare Appointment: [phone] Date of Aftercare Appointment: 06/01/25 Time of Aftercare Appointment: 10AM Aftercare Appointment Comment: Link will be sent to your [facility] email Contact Information Discharge Discharge Address: [place] [address]
--- NOTE | 2025-06-01 12:37 | Psychiatric Progress Note ---
Date of Service June 01, 2025 Impression / Recommendations Impression Rosa Warren is a 35-year-old female with AN established history of bipolar 1 disorder, and presents with acute luis, involving disorganized and paranoid behavior prior to admission. She was initially brought in on a 302 petition by crisis, after police did a wellness check and she answered the door naked, was hyperverbal, and refused to put on clothing. 302 was upheld in the emergency room, she had as needed medication given then. She has been more cooperative since arrival to the unit, and a 201 was offered. Patient was agreeable to signing in voluntarily. She is willing to accept medication here. A: Patient presents fair sleep overnight. Presenting more rational discharge plans. Speech is not pressured however she is hyperverbal and tangential at times. Discussed challenges to returning home including potential trauma. Collateral from patient's mother indicates she is approaching baseline. Overall, I spent a total of 40 minutes on this patient's care, including review of chart/records, direct evaluation of the patient, ordering medication, coordination with nursing, interdisciplinary team meeting, and documentation. (1) Bipolar 1 disorder with moderate luis: Plan 06/01/2025: Continue medications and treatment plan 05/31/2025: Continue medications and treatment plan 05/30/2025: Increase Depakote to 1500 mg at bedtime 05/29/2025: Start Depakote 1000 mg bedtime Start lorazepam 2 mg at bedtime 05/28/25: increase Latuda to 40mg today. 05/27/25: The patient was admitted to the [facility] ([facility]) on q15 min checks (behavioral with suicide precautions) for safety. The patient will participate in group, recreational, and milieu therapies and will be offered additional individual and family sessions as clinically appropriate. Since admission to the unit yesterday, she has been accepting medication, slept well, is eating and cooperative with staff. She was originally on a 302, and was offered a 201 today. She did sign in voluntarily. New medications initiated: Latuda 20 mg today, then 40 mg starting tomorrow Continue the following home medications: trazodone 100 mg nightly metformin 1000 mg daily spironolactone pantoprazole 40 mg daily Held with the following Home medications: Celexa 40 mg ( due to luis) Strattera 100 mg ( due to luis) Caplyta 42 mg ( due to not being on formulary, patient unable to bring home med to hospital) The following PRN medications will be started as well: Vistaril as needed anxiety or sleep Tylenol as needed headache or minor fever Maalox, Pepto, milk of mag as needed GI upset Zyprexa 5 mg p.o. p.o. every 6H as needed agitation Ativan 0.5 mg p.o. every 6H as needed agitation Inventory Assets Strengths: intelligence and education, establish outpatient providers, reported medication adherence Needs: medication adjustment, academic support, social support Suicide Risk Level Suicide Risk Level: Moderate (q15 min suicide checks) Suicide Risk Level Comments: suicide Risk Level: Moderate (q15 min suicide checks) Suicide Risk Level Comments: low-moderate due to luis which increases impulsivity but feels safe in the hospital, denying SI currently, able to contract for safety and agrees to let staff know should if plan or intent develops, or if patient feels unable to remain safe. 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 She was initially brought in on a 302 petition by crisis, after police did a wellness check and she answered the door naked, was hyperverbal, and refused to put on clothing. Later cooperative with improved behaviors and signed in as a 201 voluntary patient. Chief Complaint Luis Review of Systems Sleep Information Total Hours of Sleep: 7.75 Meal Information Percent Meal Consumed - Breakfast: 100 Percent Meal Consumed - Lunch: 100 Percent Meal Consumed - Dinner: 0 Nutrition Comment: patient ate a sandwich in the ED and has not eaten on the unit. Subjective Subjective Patient was seen & assessed and interval progress reviewed with treatment team nursing and social work Per nursing yesterday patient was distraught because some of her paperwork was accidentally put in the trash and later recovered. At that time was flat and irritable and later rated her mood 8.67 out of 10. Slept 7.25 hours. Patient presents a "good" mood. Says that she has been looking at books that she has been seeing on the unit and collecting the ISBN's so she can buy them later. Discussed what happened last night with her papers being thrown away. Says that she fell triggered and that she coped by walking back to her room to de- escalate. Rates her mood 8.5 out of 10. Says she slept well with no disruptions. Presents a plan to get back to her place and clean it, charge her phone and check emails and messages. Physical Exam Mental Examination Appearance: Well Groomed Eye Contact: Maintains Eye Contact Motor Behavior: Unremarkable Speech: Excessive Mood: Euphoric Affect: Congruent Thought Process: Circumstantial Hallucinations: None Insight: Fair Judgement: Fair (to limited) Vital Signs (Past 24 Hours) Last Vital Signs Temp 36.3 C L 05/31/25 06:56 Pulse 132 H 05/31/25 06:57 Resp 22 05/31/25 06:56 BP 132/55 L 05/31/25 06:57 Pulse Ox 100 05/31/25 06:56 O2 Del Method Room Air 05/31/25 06:56 A physical exam was performed in the ED by Dr. Laird for the purposes of medical clearance. I accept that physical as correct and adequate for the purposes of the inpatient physical exam. Results & Data ([facility]) Laboratory Results Laboratory Results - last 24 hr 06/01/25 06:28 POC Glucose 114 H Current Inpatient Medications Current Inpatient Medications: Current Inpatient Medications Acetaminophen (Acetaminophen 325 Mg Tab) 650 mg PO Q4H PRN PRN Reason: Headache or Minor Fever Stop: 06/25/25 13:54 Al Hydrox/Mg Hydrox/Simethicone (Aluminum/Magnesium Susp 30 Ml Udc) 30 ml PO Q4H PRN PRN Reason: GI Upset Stop: 06/25/25 13:54 Last Admin: 05/30/25 23:20 Dose: 30 ml Bismuth Subsalicylate (Bismuth Subsalicylate 262 Mg Chew) 2 tab PO Q30M PRN PRN Reason: Loose Stool/Diarrhea Stop: 06/25/25 13:54 Last Admin: 05/27/25 14:38 Dose: 2 tab Divalproex Sodium (Divalproex Delay Release 500 Mg Tab) 1,500 mg PO 2100 [facility] Stop: 06/29/25 20:59 Last Admin: 05/31/25 20:04 Dose: 1,500 mg Hydroxyzine HCl (Hydroxyzine Hcl 25 Mg Tab) 50 mg PO HSZ PRN PRN Reason: Insomnia Stop: 06/25/25 13:54 Last Admin: 05/29/25 02:36 Dose: 50 mg Hydroxyzine HCl (Hydroxyzine Hcl 25 Mg Tab) 25 mg PO Q4H PRN; Protocol PRN Reason: Anxiety Stop: 06/25/25 13:54 Lorazepam (Lorazepam 1 Mg Tab) 1 mg PO Q6 PRN; Protocol PRN Reason: Anxiety Stop: 06/25/25 13:55 Lorazepam (Lorazepam 1 Mg Tab) 2 mg PO 2100 [facility] Stop: 06/28/25 20:59 Last Admin: 05/31/25 20:05 Dose: 2 mg Lurasidone HCl (Lurasidone Hcl 20 Mg Tab) 40 mg PO DAILY@1700 [facility] Stop: 06/27/25 16:59 Last Admin: 05/31/25 18:39 Dose: 40 mg Magnesium Hydroxide (Magnesium Hydroxide Susp 30 Ml Udc) 30 ml PO DAILY PRN PRN Reason: Constipation Stop: 06/25/25 13:54 Metformin HCl (Metformin Hcl Er 500 Mg Tabcr) 1,000 mg PO DAILY [facility] Stop: 06/26/25 10:59 Last Admin: 06/01/25 08:54 Dose: 1,000 mg Olanzapine (Olanzapine 5 Mg Tablet) 5 mg PO Q6 PRN PRN Reason: Agitation Stop: 06/25/25 13:54 Pantoprazole Sodium (Pantoprazole 40 Mg Tab) 40 mg PO QAM [facility] Stop: 06/26/25 10:59 Last Admin: 06/01/25 08:53 Dose: 40 mg Sodium Chloride (Sodium Chloride 0.65% Na Soln 45 Ml ([place])) 1 - 2 sprays NA PRN PRN PRN Reason: Nasal Dryness/Congestion Stop: 06/25/25 13:54 Spironolactone (Spironolactone 100 Mg Tab) 100 mg PO 2100 [facility] Stop: 06/28/25 20:59 Last Admin: 05/31/25 20:05 Dose: 100 mg Trazodone HCl (Trazodone Hcl 50 Mg Tab) 50 mg PO HS PRN PRN Reason: Insomnia Stop: 06/26/25 10:36 Trazodone HCl (Trazodone Hcl 100 Mg Tab) 100 mg PO 2100 [facility] Stop: 06/28/25 20:59 Last Admin: 05/31/25 20:05 Dose: 100 mg Mental Health & Subst Abuse Tx Psychiatrist Name of Psychiatrist: Merlyn Estrada at [facility] Date Of Appointment With Psychiatric Provider: 07/05/25 Time of Appointment with Psychiatrist: 2PM Psychiatric Appointment Comment: Virtual Therapist Name of Therapist: Tiffany Amin at [facility] Date of Therapist Appointment: 06/18/25 Time of Therapist Appointment: 2PM Therapy Appointment Comment: Virtual Post Discharge Appointments Primary Care Physician Name Of Family Doctor/PCP: ABIMAEL Other #1: Name of Aftercare Appointment: Student care and advocacy (post hospitalization zoom meeting - [facility]) Phone Number of Aftercare Appointment: [phone] Date of Aftercare Appointment: 06/15/25 Time of Aftercare Appointment: 10:45AM Aftercare Appointment Comment: Link will be sent to your [facility] email Contact Information Discharge Discharge Address: [place] [address]
[2025-06-01 14:44] LABS: Hemoglobin A1C 5.8 % (4.5-5.6)
[2025-06-01] MEDS: LORazepam 1 MG TAB PO PRN (22:58)
--- NOTE | 2025-06-02 09:20 | Discharge Summary ---
Date of Service June 02, 2025 History of Present Illness In the ED, she was noted to have disorganized thoughts, to be hyperverbal with pressured speech and talking about "the Nazis" as well as "the devil" and several various celebrities. Word salad at times in the ED, per caser shoe parts note. She had IM medications and it was reported that this was effective. 302 was filed by crisis, and upheld in the emergency room. Patient's mother was contacted, and reported concern the patient has been not taking her meds and decompensating for the past 4 5 days. Patient reportedly has 1 previous episode of similar behavior in 2010, when she was studying for her masters degree. Her mother has a Independent IP mary, and noted that patient has not left her apartment in several days. She and AJ typically talk several times a day, but recently patient stopped communicating in the past, talking her mother during a manic episode seem to be a trigger and could escalate behavior. Police reported that patient's mother was the one who called them for the wellness check. She answered the door completely undressed and stepped in the hallway, would not dress despite encouragement from officers. She is was hyperverbal does not allow others to speak, saying things about "the illuminati", calling the officers "white supreme assist", and stating that He[employer] Christina is building a tower. In the ED, she was noted to have disorganized thoughts, to be hyperverbal with pressured speech and talking about "the Nazis" as well as "the devil" and several various celebrities. Word salad at times in the ED, per caser shoe parts note. She had IM Haldol and it was reported that this was effective. 302 was filed by crisis, and upheld in the emergency room. Upon arrival to our unit, she had mild irritability but overall was cooperative with transitioning to the unit. She slept much of the evening shift. She then slept 4-1/2 hours overnight. She did not attend groups yesterday. This morning, she has been pleasant. She was noted to be dancing in her room while listening to music. She tolerated the social history interview with social work. She continues to report she has been taking her medications regularly, but does acknowledge she has had increased academic and social stress recently. Of note, patient does not have her glasses here, and does have significant trouble seeing without them. I met with the patient privately in her room. She said she wanted to lie down on her bed, if that reminded her of lying on the couch when talking to a psychiatrist. She reports 2 weeks ago she had "a cycle", but cannot specifically describe symptoms that occurred. She did report increased stress and said several times "I just needed a break." She says she was a little agitated, and "gaslighting myself", describes some paranoia about her classmates being disrespectful to her. She said "I wanted space and they were not giving it to me." She said she continued going to class and felt symptoms resolved. She denies pulling all minors per finals week. She does state that she tends to wake up at 2 or 4 in the morning and then stay awake. When I reflected that she was hyperverbal with rapid and pressured speech, she said "this is not [place] manic talk[place] She continues to have a paranoid edge, she said she wants no one going into her house to get her glasses or her medication to bring here. denies significant anxiety. Denies depression, SI or PDW. Denies auditory or visual hallucinations. Physical Exam Mental Examination Appearance: Well Groomed Eye Contact: Maintains Eye Contact Motor Behavior: Unremarkable Speech: Excessive Mood: Euphoric Affect: Congruent Thought Process: Circumstantial Hallucinations: None Insight: Fair Judgement: Fair (to limited) Vital Signs (Past 24 Hours) Last Vital Signs Temp 36.3 C L 06/02/25 06:22 Pulse 106 H 06/02/25 06:22 Resp 18 06/02/25 06:22 BP 116/78 06/02/25 06:22 Pulse Ox 100 06/02/25 06:22 O2 Del Method Room Air 06/02/25 06:22 A physical exam was performed in the ED by Dr. Laird for the purposes of medical clearance. I accept that physical as correct and adequate for the purposes of the inpatient physical exam. Principal Diagnosis Bipolar 1 disorder with moderate luis Psychiatric Data See daily stay summary. In short, safety was maintained and the patient was cooperative with care. Medication changes included restarting home Latuda, restarting previous Depakote, lorazepam taper for sleep and they tolerated this well. A family session was held and safety plan was completed prior to discharge. Pt has an established history of bipolar 1 disorder, and presents with acute luis, involving disorganized and paranoid behavior prior to admission. She was initially brought in on a 302 petition by crisis, after police did a wellness check and she answered the door naked, was hyperverbal, and refused to put on clothing. 302 was upheld in the emergency room, she had as needed medication given then. She has been more cooperative since arrival to the unit, and a 201 was offered. Patient was agreeable to signing in voluntarily. She is willing to accept medication here. She endorsed d/c her mood stabilizer Depakote in January under her outpatient practioner and recent off label use of Ashwaganda and [facility] [place] wort. 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 H/o alcohol and cannabis abuse. She was restarted on Depakote for mood stabilization. She was started on Lorazepam for sleep with an outpatient taper. She presented significant improvement in her luis with stable speech, appropriate behaviors on the unit, decreased mood lability, organized thought process, and presented a rational and safe discharge plan. The patient's AUDIT score suggests problematic drinking (Zone III WHO). Brief intervention was offered and accepted. Intervention was greater than 5 min in length and included assessing readiness to quit, advice on how to reduce or abstain from alcohol, and to set a specific goal for this hospitalization. plant care worker will also assist in anticipating barriers to sobriety and in problem-solving for solutions to those problems while arranging for referral to appropriate treatment. The patient is in contemplation stage with regards to transtheoretical model of change. The patient is advised to decrease alcohol consumption due to depressant effects and risk of interaction with prescription medications. The patient agreed to avoid alcohol beverages and limit cannabis intake and will be provided with recovery materials to continue to educate self on how to cope with their condition without drinking. Day of Discharge Assessment Today the patient voices readiness for discharge. They note improvement in mood and deny thoughts to harm self or others. Thoughts remain organized and they are improved from admission. There is no evidence of psychosis. They agree to take mediations as prescribed and keep follow-up appointments. They are stable for discharge to outpatient level of care. Overall, I spent a total of 35 minutes with this case including review of chart records, nursing report, review of lab work, direct evaluation of the patient at bedside, counseling the patient, multidisciplinary team meeting, orders, and documentation in the electronic health record. Transition of Care Transition Of Care Record: was reviewed with the patient Advance Directives Advance Directives Information Provided: Yes Advance Directives: No Mental Health Advance Directive: No Advance Directives on File: No Living Will: No Power of Outdoor Landscape Architect: No Advance Directives Reason:: Declines as Mental Health Visit. Suicide Risk Level Suicide Risk Level Comments: suicide Risk Level: Moderate (q15 min suicide checks) Suicide Risk Level Comments: low-moderate due to luis which increases impulsivity but feels safe in the hospital, denying SI currently, able to contract for safety and agrees to let staff know should if plan or intent develops, or if patient feels unable to remain safe. 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) Supportive Family: Yes Good Rapport with Provider: Yes Discharge Data Lab Results 05/26/25 05/26/25 05/26/25 01:16 01:52 01:57 WBC 9.74 RBC 4.30 Hgb 12.5 Hct 34.6 L MCV 80.5 MCH 29.1 MCHC 36.1 H RDW Std Deviation 34.0 L RDW Coeff of Darian 11.7 Plt Count 348 MPV 10.1 Immature Gran % (Auto) 0.3 Neut % (Auto) 57.3 Lymph % (Auto) 33.4 [place] % (Auto) 8.2 Eos % (Auto) 0.2 Baso % (Auto) 0.6 Neut # (Auto) 5.58 Lymph # (Auto) 3.25 [place] # (Auto) 0.80 H Eos # (Auto) 0.02 Baso # (Auto) 0.06 Immature Gran # (Auto) 0.03 Sodium 140 Potassium 3.5 Chloride 106 Carbon Dioxide 18 L Anion Gap 16 H BUN 13 Creatinine 1.06 Est Cr Clr Drug Dosing 73.3 eGFR 69.39 BUN/Creatinine Ratio 12.3 Glucose 119 H POC Glucose Estimat Average Glucose Hemoglobin A1c Hgb A1c Pathologist Com Calcium 10.0 Total Bilirubin 1.2 H AST 36 ALT 32 Alkaline Phosphatase 41 Total Protein 7.3 Albumin 4.6 Globulin 2.7 Albumin/Globulin Ratio 1.7 Triglycerides Cholesterol LDL Cholesterol, Calc VLDL Cholesterol, Calc HDL Cholesterol Cholesterol/HDL Ratio TSH 6.188 H Free T4 1.38 HCG, Qual Negative Urine Color Urine Appearance Urine pH Ur Specific [place] Urine Protein Urine Glucose (UA) Urine Ketones Urine Blood Urine Nitrite Urine Bilirubin Urine Urobilinogen Ur Leukocyte Esterase Urine WBC (Auto) Urine RBC (Auto) U Hyaline Cast (Auto) U Epithel Cells (Auto) Urine Bacteria (Auto) Urine Comment Salicylates < 3.0 L Urine Opiates Screen Ur Methadone, Qual Urine Fentanyl Screen Acetaminophen < 3 L Urine Barbiturates Ur Phencyclidine (PCP) U Amphetamin/Meth Scrn MDMA (Ecstasy) Screen U Benzodiazepines Scrn Ur Cocaine Metabolite U Marijuana (THC) Screen Ethyl Alcohol mg/dL < 10.0 SARS-CoV-2, RNA, NAAT 05/26/25 05/26/25 05/28/25 03:11 11:30 06:59 WBC RBC Hgb Hct MCV MCH MCHC RDW Std Deviation RDW Coeff of Darian Plt Count MPV Immature Gran % (Auto) Neut % (Auto) Lymph % (Auto) [place] % (Auto) Eos % (Auto) Baso % (Auto) Neut # (Auto) Lymph # (Auto) [place] # (Auto) Eos # (Auto) Baso # (Auto) Immature Gran # (Auto) Sodium Potassium Chloride Carbon Dioxide Anion Gap BUN Creatinine Est Cr Clr Drug Dosing eGFR BUN/Creatinine Ratio Glucose POC Glucose Estimat Average Glucose 120 Hemoglobin A1c 5.8 H Hgb A1c Pathologist Com Calcium Total Bilirubin AST ALT Alkaline Phosphatase Total Protein Albumin Globulin Albumin/Globulin Ratio Triglycerides 109 Cholesterol 178 LDL Cholesterol, Calc 101 VLDL Cholesterol, Calc 22 HDL Cholesterol 55 Cholesterol/HDL Ratio 3.2 TSH 1.394 Free T4 HCG, Qual Urine Color Yellow Urine Appearance Clear Urine pH 5.5 Ur Specific [place] 1.016 Urine Protein Negative Urine Glucose (UA) Negative Urine Ketones 2+ H Urine Blood 1+ H Urine Nitrite Negative Urine Bilirubin Negative Urine Urobilinogen Negative Ur Leukocyte Esterase Trace H Urine WBC (Auto) 0-5 Urine RBC (Auto) 0-2 U Hyaline Cast (Auto) 0-2 U Epithel Cells (Auto) 3-5 H Urine Bacteria (Auto) 1+ H Urine Comment Salicylates Urine Opiates Screen Neg Ur Methadone, Qual Neg Urine Fentanyl Screen Neg Acetaminophen Urine Barbiturates Neg Ur Phencyclidine (PCP) Neg U Amphetamin/Meth Scrn Neg MDMA (Ecstasy) Screen Neg U Benzodiazepines Scrn Neg Ur Cocaine Metabolite Neg U Marijuana (THC) Screen Neg Ethyl Alcohol mg/dL SARS-CoV-2, RNA, NAAT NEGATIVE 05/28/25 05/29/25 05/30/25 08:22 07:10 06:55 WBC RBC Hgb Hct MCV MCH MCHC RDW Std Deviation RDW Coeff of Darian Plt Count MPV Immature Gran % (Auto) Neut % (Auto) Lymph % (Auto) [place] % (Auto) Eos % (Auto) Baso % (Auto) Neut # (Auto) Lymph # (Auto) [place] # (Auto) Eos # (Auto) Baso # (Auto) Immature Gran # (Auto) Sodium Potassium Chloride Carbon Dioxide Anion Gap BUN Creatinine Est Cr Clr Drug Dosing eGFR BUN/Creatinine Ratio Glucose POC Glucose 147 H 106 H 89 Estimat Average Glucose Hemoglobin A1c Hgb A1c Pathologist Com Calcium Total Bilirubin AST ALT Alkaline Phosphatase Total Protein Albumin Globulin Albumin/Globulin Ratio Triglycerides Cholesterol LDL Cholesterol, Calc VLDL Cholesterol, Calc HDL Cholesterol Cholesterol/HDL Ratio TSH Free T4 HCG, Qual Urine Color Urine Appearance Urine pH Ur Specific [place] Urine Protein Urine Glucose (UA) Urine Ketones Urine Blood Urine Nitrite Urine Bilirubin Urine Urobilinogen Ur Leukocyte Esterase Urine WBC (Auto) Urine RBC (Auto) U Hyaline Cast (Auto) U Epithel Cells (Auto) Urine Bacteria (Auto) Urine Comment Salicylates Urine Opiates Screen Ur Methadone, Qual Urine Fentanyl Screen Acetaminophen Urine Barbiturates Ur Phencyclidine (PCP) U Amphetamin/Meth Scrn MDMA (Ecstasy) Screen U Benzodiazepines Scrn Ur Cocaine Metabolite U Marijuana (THC) Screen Ethyl Alcohol mg/dL SARS-CoV-2, RNA, NAAT 05/31/25 06/01/25 06/02/25 06:26 06:28 06:09 WBC RBC Hgb Hct MCV MCH MCHC RDW Std Deviation RDW Coeff of Darian Plt Count MPV Immature Gran % (Auto) Neut % (Auto) Lymph % (Auto) [place] % (Auto) Eos % (Auto) Baso % (Auto) Neut # (Auto) Lymph # (Auto) [place] # (Auto) Eos # (Auto) Baso # (Auto) Immature Gran # (Auto) Sodium Potassium Chloride Carbon Dioxide Anion Gap BUN Creatinine Est Cr Clr Drug Dosing eGFR BUN/Creatinine Ratio Glucose POC Glucose 97 114 H 109 H Estimat Average Glucose Hemoglobin A1c Hgb A1c Pathologist Com Calcium Total Bilirubin AST ALT Alkaline Phosphatase Total Protein Albumin Globulin Albumin/Globulin Ratio Triglycerides Cholesterol LDL Cholesterol, Calc VLDL Cholesterol, Calc HDL Cholesterol Cholesterol/HDL Ratio TSH Free T4 HCG, Qual Urine Color Urine Appearance Urine pH Ur Specific [place] Urine Protein Urine Glucose (UA) Urine Ketones Urine Blood Urine Nitrite Urine Bilirubin Urine Urobilinogen Ur Leukocyte Esterase Urine WBC (Auto) Urine RBC (Auto) U Hyaline Cast (Auto) U Epithel Cells (Auto) Urine Bacteria (Auto) Urine Comment Salicylates Urine Opiates Screen Ur Methadone, Qual Urine Fentanyl Screen Acetaminophen Urine Barbiturates Ur Phencyclidine (PCP) U Amphetamin/Meth Scrn MDMA (Ecstasy) Screen U Benzodiazepines Scrn Ur Cocaine Metabolite U Marijuana (THC) Screen Ethyl Alcohol mg/dL SARS-CoV-2, RNA, NAAT Hospital Course (1) Bipolar 1 disorder with moderate luis: Plan 06/01/2025: Continue medications and treatment plan 05/31/2025: Continue medications and treatment plan 05/30/2025: Increase Depakote to 1500 mg at bedtime 05/29/2025: Start Depakote 1000 mg bedtime Start lorazepam 2 mg at bedtime 05/28/25: increase Latuda to 40mg today. 05/27/25: The patient was admitted to the [facility] ([facility] mental health unit) on q15 min checks (behavioral with suicide precautions) for safety. The patient will participate in group, recreational, and milieu therapies and will be offered additional individual and family sessions as clinically appropriate. Since admission to the unit yesterday, she has been accepting medication, slept well, is eating and cooperative with staff. She was originally on a 302, and was offered a 201 today. She did sign in voluntarily. New medications initiated: Latuda 20 mg today, then 40 mg starting tomorrow Continue the following home medications: trazodone 100 mg nightly metformin 1000 mg daily spironolactone pantoprazole 40 mg daily Held with the following Home medications: Celexa 40 mg ( due to luis) Strattera 100 mg ( due to luis) Caplyta 42 mg ( due to not being on formulary, patient unable to bring home med to hospital) The following PRN medications will be started as well: Vistaril as needed anxiety or sleep Tylenol as needed headache or minor fever Maalox, Pepto, milk of mag as needed GI upset Zyprexa 5 mg p.o. p.o. every 6H as needed agitation Ativan 0.5 mg p.o. every 6H as needed agitation Mental Health & Subst Abuse [facility]x Psychiatrist Name of Psychiatrist: Merlyn Estrada at [facility] Date Of Appointment With Psychiatric Provider: 07/05/25 Time of Appointment with Psychiatrist: 2PM Psychiatric Appointment Comment: Virtual Therapist Name of Therapist: Tiffany Amin at [facility] Date of Therapist Appointment: 06/18/25 Time of Therapist Appointment: 2PM Therapy Appointment Comment: Virtual Post Discharge Appointments Primary Care Physician Name Of Family Doctor/PCP: ABIMAEL Other #1: Name of Aftercare Appointment: Student care and advocacy (post hospitalization zoom meeting - [facility]) Phone Number of Aftercare Appointment: [phone] Date of Aftercare Appointment: 06/15/25 Time of Aftercare Appointment: 10:45AM Aftercare Appointment Comment: Link will be sent to your [facility] email Contact Information [facility] [place] [address] Discharge Plan Discharge Items Patient Disposition: Home - Self-Care Reason For Visit: BIPOLAR DISORDER Discharge Diagnosis: Bipolar 1 Disorder with moderate luis Condition on Discharge: Fair Activity: Resume your previous activity Non-emergency contact: Primary Care Provider, Psychiatrist and Therapist Call non-emergency contact if: you have any medication questions and your symptoms worsen Follow-up/Referrals: Vladimir Valdez PA-C [Primary Care Provider] - Diet: Regular Addtl Attending Provider Instructions: Continue Depakote 1500mg at bedtime Continue Trazodone 100mg at bedtime Continue Lurasidone 40mg daily with food Continue Lorazepam 2mg at bedtime for 1 week, then take 1mg NEEDED for sleep Focus on self care. Avoid energy drinks/caffeine. No food 2 hours before sleep. Maintain a consistent sleep/wake schedule. Pending Studies at Discharge: No Stand-Alone Forms: My [facility], Smoking Cessation Medications and DC Order Prescriptions: New divalproex 500 mg Tablet,Delayed Release (Dr/Ec) 1,500 mg PO 2100 Qty: 90 0RF lorazepam 1 mg Tablet See Rx Instructions .ROUTE .COMPLEX Qty: 30 0RF Rx Instructions: Take 2 tablets at bedtime for 1 week, then take 1 tablet NEEDED for sleep lurasidone 40 mg tablet 40 mg PO DAILY@1700 Qty: 30 0RF trazodone 100 mg Tablet 100 mg PO 2100 Qty: 30 0RF Continued pantoprazole 40 mg tablet,delayed release (DR/EC) 40 mg PO DAILY metformin 1,000 mg tablet,ER vivek.retention 24 hr 1,000 mg PO DAILY (DME) blood-glucose meter [Contour Next Glucose Meter] Kit See Rx Instructions miscellaneous .MEDSUPPLY Qty: 1 0RF Rx Instructions: As directed, check blood sugar daily (DME) Contour Next Test Strips Strip See Rx Instructions miscellaneous .MEDSUPPLY Qty: 100 0RF Rx Instructions: As directed, check blood sugar daily (DME) lancets Misc See Rx Instructions miscellaneous .MEDSUPPLY Qty: 100 1RF Rx Instructions: As directed, check blood sugar daily spironolactone 100 mg Tablet 100 mg PO HS Discontinued Caplyta 42 mg capsule 42 mg PO DAILY trazodone 100 mg tablet 100 mg PO HS atomoxetine 100 mg capsule 100 mg PO DAILY citalopram 40 mg tablet 40 mg PO DAILY Discharge Orders: Discharge Order (Routine); Ordered 06/02/25 Ordered By: Albaro Portillo Admission Data Admit Date/Time: 05/26/25 13:55 Attending Provider: Albaro Portillo Admit Provider: Alysha Fitzgerald Primary Care Provider: Vladimir Valdez Other Providers: Alysha Fitzgerald [place] [address] D/C day mgmt > 30 min Patient Type Established History Detailed Exam Detailed Medical Decision Making High Complexity Diagnoses Bipolar 1 disorder with moderate luis F31.12
== END 2025-06-02 11:55 | disposition home or self-care (01) | DRG 885 ==
LOC: ED 01:14 → SUATTDRO 13:55 → 3S 13:55